=== PATIENT | male | born 2000 | race Caucasian/White ===

== ENCOUNTER 2022-06-22 07:43 | Outpatient (REF) | payer OTHER, SELFPAY ==
[2022-06-22 11:59] LABS: Estimated Average Glucose 105 mg/dL; Hemoglobin A1c % 5.3 %
[2022-06-22 12:14] LABS: Alanine Aminotransferase 35 U/L (0-40); Albumin Level 4.4 g/dL (3.5-5.0); Alkaline Phosphatase 58 U/L (39-117); Anion Gap 14 (12-20); Aspartate Amino Transferase 22 U/L (5-37); Bilirubin Total 0.4 mg/dL (0.0-1.0); Blood Urea Nitrogen 21 mg/dL (9-16); Calcium 9.6 mg/dL (8.4-10.2); Carbon Dioxide 27 mmol/L (22-29); Chloride 101 mmol/L (96-108); Cholesterol 144 mg/dL; Estimated Glomerular Filt Rate > 60; Glucose Fasting 97 mg/dL (60-99); HDL Cholesterol 38 mg/dL; LDL Cholesterol Calculated 70 mg/dl; Potassium 3.2 mmol/L (3.3-5.1); Sodium 139 mmol/L (135-145); Total Protein 7.7 g/dL (6.5-8.0); Triglycerides 180 mg/dL
[2022-06-22 12:23] LABS: TSH reflex Free T4 3.66 uIU/mL (0.32-4.0)
[2022-06-22 12:30] LABS: HBS Num1 1.96 mIU/mL (0-7.99); HBc Num1 0.12 S/CO (0.00-0.79); HBsAGNum1 0.16 S/CO (0.00-0.99); HIV AB/AG Nonreactive (Nonreactive); HIV Num 1 0.06 S/CO (0.00-0.99); Hepatitis B Core Antibody Nonreactive (Nonreactive); Hepatitis B Surface Antigen Negative (Negative); ~HepC Num1 0.06 S/CO (0.00-0.79); ~Hepatitis B Surface Antibody NONREACTIVE (Nonreactive); ~Hepatitis C Antibody Nonreactive (Nonreactive)
[2022-06-22 13:06] LABS: Creatinine Urine 20.06 mg/dL; Microalbumin Urine < 5.0 mg/L
[2022-06-23 05:16] LABS: Syphilis Screen Nonreactive (Nonreactive)
== END 2022-06-22 07:44 | disposition home or self-care (01) ==
LOC: HO.WFDLDS 07:43
PROVIDERS: Visit Provider Family Medicine
DX: Z00.00 Encounter for general adult medical examination without abnormal findings (principal); Z11.4 Encounter for screening for human immunodeficiency virus [HIV]; Z11.3 Encounter for screening for infections with a predominantly sexual mode of transmission; Z13.1 Encounter for screening for diabetes mellitus; I10 Essential (primary) hypertension; E66.01 Morbid (severe) obesity due to excess calories; Z68.42 Body mass index [BMI] 45.0-49.9, adult
CPT/HCPCS: 36415; 80053; 80061; 82043; 83036; 84443; 86704; 86706; 86780; 86803; 87340; 87389

== ENCOUNTER 2022-09-27 07:16 | Outpatient (REF) | payer OTHER, SELFPAY ==
[2022-09-27 11:05] LABS: Anion Gap 12 (12-20); Blood Urea Nitrogen 13 mg/dL (9-16); Calcium 9.8 mg/dL (8.4-10.2); Carbon Dioxide 28 mmol/L (22-29); Chloride 101 mmol/L (96-108); Estimated Glomerular Filt Rate > 60; Glucose Random 94 mg/dL (60-115); Potassium 3.6 mmol/L (3.3-5.1); Sodium 137 mmol/L (135-145)
[2022-09-27 11:52] LABS: Creatinine Urine 192.58 mg/dL; Microalbum/Creatinine Ratio Ur 10.3 ug/mg cr
== END 2022-09-27 07:17 | disposition home or self-care (01) ==
LOC: HO.WFDLDS 07:16
PROVIDERS: Visit Provider Family Medicine
DX: Z00.00 Encounter for general adult medical examination without abnormal findings (principal); I10 Essential (primary) hypertension
CPT/HCPCS: 36415; 80048; 82043

== ENCOUNTER 2023-04-12 15:38 | Outpatient (AMB) | payer OTHER, SELFPAY ==
--- NOTE | 2023-04-12 15:40 | A.OFFPC_ITS ---
Vital Signs 04/12/23 15:41 Height 6 ft 3 in Weight 400 lb 6 oz BMI 50.0 BP 126/76 Blood Pressure Location Lt brachial Position Sitting Pulse 82 Pulse Source Pulse Oximeter Pulse Oximetry (%) 97 Oxygen Delivery Method Room Air Intake Visit Reasons: f/u hypertension Intake Note: Patient is here to follow up on hypertension today, he now has new anti anxiety med. Allergies sulfamethoxazole [From Bactrim] Allergy (Mild, Verified 04/12/23 15:44) Vomiting trimethoprim [From Bactrim] Allergy (Mild, Verified 04/12/23 15:44) Vomiting Tobacco use date assessed: 04/12/23 Dental Screening Dental Screen Date: 04/12/23 Did you have a dental visit in the last 12 months?: No Did you have a dental problem in the last 6 months where you did not have access to dental care?: No Was dental information given to patient?: No HPI f/u hypertension HPI Details 22 y/o male presents to f/u hypertension. Pt was low so added lisinopril to improve blood pressure and increase potassium. Blood pressure today is 126/76. He is on lisinopril 20mg and amlodipine 2.5mg [facility]. They report he has been watching the salt and sodium in his diet. They state he does have sleep apnea. He does have a CPAP machine but has not been using it lately. [facility] Family History Maternal Grandmother Diabetes Mother History of thyroid disorder Social History Housing: House Patient Tobacco Use Status: Never used Tobacco e-Cigarette/Vaping Use: Never Used Second Hand Smoke Exposure: No service: No Current occupational status: unemployed Current occupational exposures/hazards: No Cognitive needs: No Hearing needs: No Vision needs: No Questionnaire PHQ-9 Over the last 2 weeks, how often have you been bothered by any of the following problems? 1. Little interest or pleasure in doing things: several days 2. Feeling down, depressed, or hopeless: several days 3. Trouble falling or staying asleep, or sleeping too much: not at all 4. Feeling tired or having little energy: nearly every day 5. Poor appetite or overeating: several days 6. Feeling bad about yourself - or that you are a failure or have let yourself or your family down: not at all 7. Trouble concentrating on things, such as reading the newspaper or watching television: not at all 8. Moving or speaking so slowly that other people could have noticed. Or the opposite - being so fidgety or restless that you have been moving around a lot more than usual: not at all 9. Thoughts that you would be better off or of hurting yourself in some way: not at all Total score: 6 Source: Developed by Drs. Jose Carbajal, Clara Rascon, Del Schmid and colleagues, with an educational richy from [employer]. Thrive Questionnaire Date Thrive assessed: 09/27/22 GRAY-7 AMB Questionnaire GRAY-7 Date GRAY - 7 assessed: 09/27/22 Feeling nervous, anxious, or on edge: 1 = Several days Not being able to stop or control worryin = Several days Worrying too much about different things: 3 = Nearly every day Trouble relaxin = Several days Being so restless that it is hard to sit still: 0 = Not at all Becoming easily annoyed or irritable: 0 = Not at all Feeling afraid as if something awful might happen: 1 = Several days Total GRAY-7 score (0-4 normal; 5-9 mild; 10-14 moderate; 15-21 severe): 7 Source: Developed by Drs. Jose Carbajal, Clara Rascon, Del Schmid and colleagues, with an educational richy from [employer]. Physical exam (Primary Care) Vital Signs: Last Vital Signs Pulse 82 04/12/23 15:41 BP 126/76 04/12/23 15:41 Pulse Ox 97 04/12/23 15:41 Oxygen Delivery Method Room Air 04/12/23 15:41 BMI result Body Mass Index 50.0 Tobacco/Smoking Status: Tobacco use Status Tobacco use date assessed 04/12/23 04/12/23 15:53 Patient Tobacco Use Status Never used Tobacco 04/12/23 15:53 e-Cigarette/Vaping Use Never Used 04/12/23 15:53 PHQ-9: PHQ-9 Score PHQ-9: Total score 6 04/12/23 15:56 Thrive Assessment: Date of Thrive Assessment Date Thrive assessed 09/27/22 04/12/23 15:53 Const Nutritional Appearance: obese morbidly obese Assessment and Plan Assessment & Plan (1) Hypertension: Code(s): I10 - Essential (primary) hypertension Plan: Blood pressure is controlled. Goal is less than 140/90 Continue current medication regimen Watch salt/sodium in diet Work at weight loss Also has sleep apnea which can affect his blood pressure and advised trying to use CPAP machine; patient has not been using it lately (2) Sleep apnea: Code(s): G47.30 - Sleep apnea, unspecified Plan: Patient is not using his CPAP machine as he has difficulty with this. Advised she try using it during the day to get used to it better and allow himself to fall asleep with it if he is able. Advised him to follow-up with sleep medicine (3) Morbid obesity with BMI of 45.0-49.9, adult: Code(s): E66.01 - Morbid (severe) obesity due to excess calories; Z68.42 - Body mass index [BMI] 45.0-49.9, adult Plan: Has lost about 10 lb Encouraged weight loss Coding Level of Care Code Est Pt Level 4 (35788) Diagnoses Hypertension I10 Sleep apnea G47.30 Morbid obesity with BMI of 45.0-49.9, adult E66.01; Z68.42
[2023-04-12 15:41] VITALS: BP 126/76; PULSE 82; O2SAT 97; BMI 50.0
== END 2023-04-12 16:14 | disposition home or self-care (01) ==
PROVIDERS: PCP Family Medicine; Visit Provider Family Medicine
DX: I10 Essential (primary) hypertension (principal); G47.30 Sleep apnea, unspecified; E66.01 Morbid (severe) obesity due to excess calories; Z68.42 Body mass index [BMI] 45.0-49.9, adult
CPT/HCPCS: 99214

== ENCOUNTER 2023-08-24 10:44 | Outpatient (AMB) | payer OTHER, SELFPAY ==
[2023-08-24 10:47] VITALS: BP 132/82; PULSE 80; O2SAT 98; BMI 52.7
--- NOTE | 2023-08-24 10:47 | A.OFFPC_ITS ---
Vital Signs 08/24/23 10:47 Height 6 ft 3 in Weight 421 lb 6 oz BMI 52.7 BP 132/82 Blood Pressure Location Lt brachial Position Sitting Pulse 80 Pulse Source Pulse Oximeter Pulse Oximetry (%) 98 Oxygen Delivery Method Room Air Intake Visit Reasons: f/u hypertension Intake Note: Patient is here for follow up on hypertension today. Allergies sulfamethoxazole [From Bactrim] Allergy (Mild, Verified 08/24/23 10:50) Vomiting trimethoprim [From Bactrim] Allergy (Mild, Verified 08/24/23 10:50) Vomiting Tobacco use date assessed: 08/24/23 HPI f/u hypertension HPI Details 23 y/o male presents to f/u hypertension . Blood pressure today 132/82. He is on lisinopril 20mg, amlodipine 2.5mg daily. Also on chlorthalidone 25mg daily. Hx of sleep apnea. He states he has not been using his CPAP. He does not have a sleep medicine specialist or pulmnologist. Had gained about 21 lbs from last office visit 04/12/23. He notes he has not been exercising much. [facility] Family History Maternal Grandmother Diabetes Mother History of thyroid disorder Social History Housing: House Patient Tobacco Use Status: Never used Tobacco e-Cigarette/Vaping Use: Never Used Second Hand Smoke Exposure: No service: No Current occupational status: unemployed Current occupational exposures/hazards: No Cognitive needs: No Hearing needs: No Vision needs: No Questionnaire Thrive Questionnaire Date Thrive assessed: 09/27/22 GRAY-7 AMB Questionnaire GRAY-7 Date GRAY - 7 assessed: 09/27/22 Source: Developed by Drs. Jose Carbajal, Clara Rascon, Del Schmid and colleagues, with an educational richy from [employer]. Review of Systems Const Denies chills, Denies fatigue, Denies fever(s), Denies headache(s) and Denies weakness ENT Denies dizziness and Denies headache(s) Card Denies chest pain, Denies lightheadedness, Denies dyspnea and Denies other (Palpitations) Resp Denies cough, Denies dyspnea, Denies wheezing and Denies other ( shortness of breath) Musc Denies numbness and Denies tingling Neuro Denies dizziness, Denies headache(s), Denies numbness, Denies tingling, Denies paresthesias and Denies weakness Psych Denies anxiety and Denies depression Endo Denies fatigue Aller/Immun Denies wheezing Physical exam (Primary Care) Vital Signs: Last Vital Signs Pulse 80 08/24/23 10:47 BP 132/82 08/24/23 10:47 Pulse Ox 98 08/24/23 10:47 Oxygen Delivery Method Room Air 08/24/23 10:47 BMI result Body Mass Index 52.7 Tobacco/Smoking Status: Tobacco use Status Tobacco use date assessed 08/24/23 08/24/23 10:51 Patient Tobacco Use Status Never used Tobacco 08/24/23 10:51 e-Cigarette/Vaping Use Never Used 08/24/23 10:51 Thrive Assessment: Date of Thrive Assessment Date Thrive assessed 09/27/22 08/24/23 10:51 Const General: no acute distress and well developed Nutritional Appearance: obese morbidly obese Orientation/consciousness: patient oriented x3 HENMT Head: Yes normocephalic and Yes atraumatic Eyes General: appearance normal, both eyes and all related structures Pupils: Equal, round and reactive pupils present EOM: EOMs intact bilaterally Resp Effort & Inspection: normal respiratory effort Auscultation: clear to auscultation bilaterally Cardio Rate: regular rate Rhythm: regular rhythm Heart sounds: S1 normal heart sound present, S2 normal heart sound present, no gallops, no murmurs and no rubs Neuro General: patient oriented x3 and gait normal Cranial nerves: Yes Equal, round and reactive pupils present Psych Affect: normal affect Assessment and Plan Assessment & Plan (1) Hypertension: Code(s): I10 - Essential (primary) hypertension Plan: Blood?pressure?has?increase?though?still?less?than?140/90?which?is?his?goal Continue?current?medications Encouraged?weight?loss?and?exercise Encouraged?salt/sodium?avoid (2) Morbid obesity: Code(s): E66.01 - Morbid (severe) obesity due to excess calories Plan: Morbid?obesity?with?BMI?greater?than?50 Encouraged?diet?and?increased?activity?+exercise Patient?would?like?to?try?Ozempic - will?trial?this I?think?he?would?also?benefit?from?the?weight?management?program?so?I?batres ve?made?a?referral (3) Sleep apnea: Code(s): G47.30 - Sleep apnea, unspecified Plan: Patient?is?not?using?his?CPAP?and?it?is?unclear?if?he?still?has?this. Will?refer?him?to?Sleep?Medicine Orders: Referrals Medical Weight Management Referral E66.01 - Morbid (severe) obesity due to excess calories, G47.30 - Sleep apnea, unspecified, I10 - Essential (primary) hypertension, Z68.43 - Body mass index [BMI] 50.0-59.9, adult Sleep Medicine Referral G47.30 - Sleep apnea, unspecified Medications: New semaglutide (Ozempic) 0.5 mg (0.736 mL) subcut QWEEK 3 mL 2RF 28 days E66.01 - Morbid (severe) obesity due to excess calories, Z68.43 - Body mass index [BMI] 50.0-59.9, adult Coding Level of Care Code Est Pt Level 4 (16854) Diagnoses Hypertension I10 Morbid obesity E66.01 Sleep apnea G47.30
== END 2023-08-24 11:21 | disposition home or self-care (01) ==
PROVIDERS: PCP Family Medicine; Visit Provider Family Medicine
DX: I10 Essential (primary) hypertension (principal); E66.01 Morbid (severe) obesity due to excess calories; Z68.43 Body mass index [BMI] 50.0-59.9, adult; G47.30 Sleep apnea, unspecified
CPT/HCPCS: 99214

== ENCOUNTER 2024-01-03 13:33 | Outpatient (AMB) | payer OTHER, SELFPAY ==
--- NOTE | 2024-01-03 13:20 | A.OFFPC_ITS ---
Vital Signs 01/03/24 13:52 Height 6 ft 3 in Weight 423 lb BMI 52.9 BP 132/82 Blood Pressure Location Lt brachial Position Sitting Pulse 95 Pulse Source Pulse Oximeter Pulse Oximetry (%) 98 Oxygen Delivery Method Room Air Intake Visit Reasons: f/u HTN and obesity Intake Note: Patient is here to follow up on hypertension and obesity today, he lost his paperwork for weight management, and did not end up going. Allergies sulfamethoxazole [From Bactrim] Allergy (Mild, Verified 01/03/24 13:46) Vomiting trimethoprim [From Bactrim] Allergy (Mild, Verified 01/03/24 13:46) Vomiting Medication List - Last Reconciled 01/03/24 by Matthew Thao MD amlodipine 2.5 mg PO DAILY 30 days aripiprazole (Abilify) 2 mg PO BEDTIME chlorthalidone 25 mg PO DAILY 30 days clotrimazole 1% 1 spray topical BID 14 days escitalopram oxalate 30 mg (1.5 x 20 mg) PO DAILY 30 days lisinopril 20 mg PO DAILY 90 days semaglutide (weight loss) (Wegovy) 0.25 mg (0.5 mL) subcut QWEEK 28 days Tobacco use date assessed: 01/03/24 Dental Screening Dental Screen Date: 01/03/24 Did you have a dental visit in the last 12 months?: Yes Did you have a dental problem in the last 6 months where you did not have access to dental care?: No Was dental information given to patient?: Patient has dentist HPI f/u HTN and obesity HPI Details 23 y/o male presents to f/u hypertension and morbid obesity. Trialing ozempic for weight and had referred him to the weight management program. Had also referred him to sleep medicine as he did not seem to have his CPAP machine anymore. Blood pressure today 132/82. He is on amlodipine 2.5mg, lisinopril 20mg daily. Weight management had tried to reach pt but had been unable to get a hold of him. PFSH Family History Maternal Grandmother Diabetes Mother History of thyroid disorder Social History Housing: House Patient Tobacco Use Status: Never used Tobacco e-Cigarette/Vaping Use: Never Used Second Hand Smoke Exposure: No service: No Current occupational status: unemployed Current occupational exposures/hazards: No Cognitive needs: No Hearing needs: No Vision needs: No Questionnaire PHQ-9 Over the last 2 weeks, how often have you been bothered by any of the following problems? 1. Little interest or pleasure in doing things: not at all 2. Feeling down, depressed, or hopeless: not at all 3. Trouble falling or staying asleep, or sleeping too much: not at all 4. Feeling tired or having little energy: not at all 5. Poor appetite or overeating: not at all 6. Feeling bad about yourself - or that you are a failure or have let yourself or your family down: not at all 7. Trouble concentrating on things, such as reading the newspaper or watching television: not at all 8. Moving or speaking so slowly that other people could have noticed. Or the opposite - being so fidgety or restless that you have been moving around a lot more than usual: not at all 9. Thoughts that you would be better off or of hurting yourself in some way: not at all Total score: 0 Depression Screening Interpretation: Negative Depression Screening Done: Yes 71977 - PHQ-9 Billing: Yes Source: Developed by Drs. Jose Carbajal, Clara Rascon, Del Schmid and colleagues, with an educational richy from [employer]. Thrive Questionnaire Date Thrive assessed: 01/03/24 I am a: Patient What is your living situation today?: I have a steady place to live Within the past 12 months, did the food you bought not last and you didn't have the money to get more?: Never true Within the past 12 months, did you worry whether your food would run out before you got money to buy more?: Never true Do you have trouble paying for medicines?: No Do you have trouble getting transportation to medical appointments?: No Do you have trouble paying your heating and electricity bill?: No Do you have trouble taking care of your child, family member or friend?: No Do you have trouble with day-to-day activities such as bathing, preparing meals, shopping, managing finances, etc.?: No Are you currently unemployed and looking for a job?: Yes Are you interested in more education?: Yes THRIVE Score: 0 AUDIT C Alcohol Use Questionnaire (AUDIT-C) 1. How often do you have a drink containing alcohol?: Monthly or less 2. How many drinks containing alcohol do you have on a typical day when you are drinking?: 1 or 2 3. How often do you have six or more drinks on one occasion?: Less than monthly Total Score: 2 GRAY-7 AMB Questionnaire GRAY-7 Date GRAY - 7 assessed: 01/03/24 Feeling nervous, anxious, or on edge: 0 = Not at all Not being able to stop or control worryin = Not at all Worrying too much about different things: 1 = Several days Trouble relaxin = Not at all Being so restless that it is hard to sit still: 0 = Not at all Becoming easily annoyed or irritable: 0 = Not at all Feeling afraid as if something awful might happen: 1 = Several days Total GRAY-7 score (0-4 normal; 5-9 mild; 10-14 moderate; 15-21 severe): 2 Source: Developed by Drs. Jose Carbajal, Clara Rascon, Del Schmid and colleagues, with an educational richy from [employer]. GRAY-7 Assessment Billing GRAY-7 Assessment Tool: GRAY-7 Assessment [id number] Review of Systems Const Denies chills, Denies fatigue, Denies fever(s), Denies headache(s) and Denies weakness ENT Denies dizziness and Denies headache(s) Card Denies dyspnea Resp Denies cough, Denies dyspnea, Denies wheezing and Denies other (shortness of breath) Musc Denies numbness and Denies tingling Neuro Denies dizziness, Denies headache(s), Denies numbness, Denies tingling and Denies weakness Psych Denies anxiety and Denies depression Endo Denies fatigue Aller/Immun Denies wheezing Physical exam (Primary Care) Vital Signs: Last Vital Signs Pulse 95 01/03/24 13:52 BP 132/82 01/03/24 13:52 Pulse Ox 98 01/03/24 13:52 Oxygen Delivery Method Room Air 01/03/24 13:52 BMI result Body Mass Index 52.9 Tobacco/Smoking Status: Tobacco use Status Tobacco use date assessed 01/03/24 01/03/24 13:49 Patient Tobacco Use Status Never used Tobacco 01/03/24 13:21 e-Cigarette/Vaping Use Never Used 01/03/24 13:21 PHQ-9: PHQ-9 Score PHQ-9: Total score 0 01/03/24 14:05 Depression Screening Interpretation: Negative Thrive Assessment: Date of Thrive Assessment Date Thrive assessed 01/03/24 01/03/24 13:56 Const General: well developed; No acute distress Nutritional Appearance: obese morbidly obese Orientation/consciousness: patient oriented x3 HENMT Head: Yes normocephalic and Yes atraumatic Eyes General: appearance normal, both eyes and all related structures Pupils: Equal, round and reactive pupils present EOM: EOMs intact bilaterally Resp Effort & Inspection: normal respiratory effort Auscultation: clear to auscultation bilaterally Cardio Rate: regular rate Rhythm: regular rhythm Heart sounds: S1 normal heart sound present, S2 normal heart sound present, no gallops, no murmurs and no rubs Neuro General: patient oriented x3 and gait normal Cranial nerves: Yes Equal, round and reactive pupils present Psych Affect: normal affect Assessment and Plan Assessment & Plan (1) Hypertension: Code(s): I10 - Essential (primary) hypertension Plan: Blood?pressure?is?controlled.??Goal?is?less?than?140/90 Continue?current?medication?regimen?of?amlodipine,?chlorthalidone?and?lisinopril Encouraged?salt/sodium?avoidance?and?weight?loss. Encouraged?exercise - he?is?starting?softball?this?month (2) Morbid obesity: Code(s): E66.01 - Morbid (severe) obesity due to excess calories Plan: Had?referred?him?to?weight?management?and?they?tried?to?contact?him?but?did?not? reach?him Gave?him?the?number?for?weight?management?and?he?will?call?for?an?appointment (3) Sleep apnea: Code(s): G47.30 - Sleep apnea, unspecified Plan: Had?referred?him?to?Sleep?Medicine?but?they?were?unable?to?reach?him. Gave?patient?the?phone?number?for?sleep?medicine?and?he?will?call?for?an?appoint ment Coding Level of Care Code Est Pt Level 3 (41149) Diagnoses Hypertension I10 Morbid obesity E66.01 Sleep apnea G47.30 Additional Codes GRAY-7 Assessment Billing - GRAY-7 Assessment Tool: GRAY-7 Assessment [id number] ([id number])
[2024-01-03 13:52] VITALS: BP 132/82; PULSE 95; O2SAT 98; BMI 52.9
== END 2024-01-03 14:16 | disposition home or self-care (01) ==
PROVIDERS: PCP Family Medicine; Visit Provider Family Medicine
DX: I10 Essential (primary) hypertension (principal); E66.01 Morbid (severe) obesity due to excess calories; Z68.43 Body mass index [BMI] 50.0-59.9, adult; G47.30 Sleep apnea, unspecified
CPT/HCPCS: 99213

== ENCOUNTER 2024-10-08 09:03 | Outpatient (AMB) | payer OTHER, SELFPAY ==
--- NOTE | 2024-10-08 09:06 | A.OFFPC_ITS ---
Vital Signs 10/08/24 09:10 Height 6 ft 3 in Weight 423 lb 6 oz BMI 52.9 BP 130/72 Blood Pressure Location Lt brachial Position Sitting Respiration 16 Pulse 90 Pulse Source Pulse Oximeter Temp 97.8 F Temp Source Oral Pulse Oximetry (%) 96 Oxygen Delivery Method Room Air Intake Visit Reasons: PE Intake Note: patient here for CPE Auto Damage Trainee Required: No Allergies sulfamethoxazole [From Bactrim] Allergy (Mild, Verified 10/08/24 09:09) Vomiting trimethoprim [From Bactrim] Allergy (Mild, Verified 10/08/24 09:09) Vomiting Medication List - Last Reconciled 10/08/24 by Matthew Thao MD amlodipine 2.5 mg PO DAILY 30 days aripiprazole (Abilify) 2 mg PO BEDTIME chlorthalidone 25 mg PO DAILY 30 days clotrimazole 1% 1 spray topical BID 14 days escitalopram oxalate 30 mg (1.5 x 20 mg) PO DAILY 30 days lisinopril 20 mg PO DAILY 90 days Tobacco use date assessed: 10/08/24 Dental Screening Dental Screen Date: 10/08/24 Did you have a dental visit in the last 12 months?: Yes Did you have a dental problem in the last 6 months where you did not have access to dental care?: No Was dental information given to patient?: Patient has dentist HPI PE HPI Details 24 y/o male presents for a CPE with f/u labs and health maintenance. No recent labs to review. BP today 130/72, 90p. He is on amlodipine 2.5mg and lisinopril 20mg daily. [facility] Family History Maternal Grandmother Diabetes Mother History of thyroid disorder Social History Housing: House Patient Tobacco Use Status: Never used Tobacco e-Cigarette/Vaping Use: Never Used Second Hand Smoke Exposure: No service: No Current occupational status: unemployed Current occupational exposures/hazards: No Cognitive needs: No Hearing needs: No Vision needs: No Questionnaire PHQ-9 Over the last 2 weeks, how often have you been bothered by any of the following problems? 1. Little interest or pleasure in doing things: not at all 2. Feeling down, depressed, or hopeless: several days 3. Trouble falling or staying asleep, or sleeping too much: not at all 4. Feeling tired or having little energy: several days 5. Poor appetite or overeating: several days 6. Feeling bad about yourself - or that you are a failure or have let yourself or your family down: not at all 7. Trouble concentrating on things, such as reading the newspaper or watching television: several days 8. Moving or speaking so slowly that other people could have noticed. Or the opposite - being so fidgety or restless that you have been moving around a lot more than usual: not at all 9. Thoughts that you would be better off or of hurting yourself in some way: not at all Total score: 4 Source: Developed by Drs. Jose Carbajal, Clara Rascon, Del Schmid and colleagues, with an educational richy from [employer]. Thrive Questionnaire Date Thrive assessed: 10/08/24 I am a: Patient What is your living situation today?: I have a steady place to live Within the past 12 months, did the food you bought not last and you didn't have the money to get more?: Never true Within the past 12 months, did you worry whether your food would run out before you got money to buy more?: Never true Do you have trouble paying for medicines?: No Do you have trouble getting transportation to medical appointments?: No Do you have trouble paying your heating and electricity bill?: No Do you have trouble taking care of your child, family member or friend?: No Do you have trouble with day-to-day activities such as bathing, preparing meals, shopping, managing finances, etc.?: No Are you currently unemployed and looking for a job?: Yes Are you interested in more education?: Yes Please select the resources that you would like help with: None Currently or been in a relationship where the following occur: No concerns reported THRIVE Score: 0 AUDIT C Alcohol Use Questionnaire (AUDIT-C) 1. How often do you have a drink containing alcohol?: Monthly or less 2. How many drinks containing alcohol do you have on a typical day when you are drinking?: 1 or 2 3. How often do you have six or more drinks on one occasion?: Never Total Score: 1 GRAY-7 AMB Questionnaire GRAY-7 Date GRAY - 7 assessed: 10/08/24 Feeling nervous, anxious, or on edge: 1 = Several days Not being able to stop or control worryin = Not at all Worrying too much about different things: 1 = Several days Trouble relaxin = Not at all Being so restless that it is hard to sit still: 0 = Not at all Becoming easily annoyed or irritable: 1 = Several days Feeling afraid as if something awful might happen: 0 = Not at all Total GRAY-7 score (0-4 normal; 5-9 mild; 10-14 moderate; 15-21 severe): 3 Source: Developed by Drs. Jose Carbajal, Clara Rascon, Del Schmid and colleagues, with an educational richy from [employer]. GRAY-7 Assessment Billing GRAY-7 Assessment Tool: GRAY-7 Assessment 31810 Review of Systems Const Denies chills, Denies fatigue, Denies fever(s), Denies headache(s) and Denies weakness Eyes Denies change in vision ENT Denies dizziness, Denies headache(s), Denies hearing loss, Denies nasal congestion, Denies sinus pain, Denies sinus pressure and Denies sore throat Card Denies chest pain, Denies lightheadedness, Denies dyspnea and Denies other ( palpitations) Resp Denies cough, Denies dyspnea and Denies wheezing GI Denies abdominal pain, Denies melena, Denies hematochezia, Denies change in bow el habits, Denies dyspepsia and Denies nausea Denies hematuria and Denies dysuria Musc Denies abnormal gait, Denies myalgias, Denies arthralgias, Denies numbness and Denies tingling Skin/Breast Denies rash, Denies unusual bruising and Denies wounds Neuro Denies abnormal gait, Denies dizziness, Denies headache(s), Denies memory loss, Denies numbness, Denies Sensory deficit (Neuro), Denies tingling and Denies weakness Psych Denies anxiety, Denies depression and Denies memory loss Endo Denies cold intolerance, Denies fatigue, Denies heat intolerance, Denies polydipsia and Denies polyuria Kade/Lymph Denies easy bleeding and Denies easy bruising Aller/Immun Denies wheezing Physical exam (Primary Care) Vital Signs: Last Vital Signs Temp 97.8 F 10/08/24 09:10 Pulse 90 10/08/24 09:10 Resp 16 10/08/24 09:10 BP 130/72 10/08/24 09:10 Pulse Ox 96 10/08/24 09:10 Oxygen Delivery Method Room Air 10/08/24 09:10 BMI result Body Mass Index 52.9 Tobacco/Smoking Status: Tobacco use Status Tobacco use date assessed 10/08/24 10/08/24 09:10 Patient Tobacco Use Status Never used Tobacco 10/08/24 09:08 e-Cigarette/Vaping Use Never Used 10/08/24 09:08 PHQ-9: PHQ-9 Score PHQ-9: Total score 4 10/08/24 09:08 Thrive Assessment: Date of Thrive Assessment Date Thrive assessed 10/08/24 10/08/24 09:08 Currently or been in a relationship where the following occur: No concerns reported Const General: no acute distress, well developed, alert and awake Nutritional Appearance: well nourished and obese morbidly obese Orientation/consciousness: patient oriented x3 HENMT Head: Yes normocephalic and Yes atraumatic Ears: hearing grossly normal bilaterally and TM's normal bilaterally General nose exam: Normal external nose present and Normal nares present Mouth: Normal oral and palatal mucosa present and moist mucous membranes Teeth and gingiva: dentition normal Throat: Yes posterior oropharynx normal Eyes General: appearance normal, both eyes and all related structures Pupils: Equal, round and reactive pupils present and Pupil accommodation reflex normal EOM: EOMs intact bilaterally Neck Neck: Yes normal visual inspection, Yes no lymphadenopathy and Yes trachea midline Thyroid: Thyroid normal Carotids: no bruits Lymphatic: no lymphadenopathy noted Chest Chest palpation & inspection: normal inspection of the chest Resp Effort & Inspection: normal respiratory effort Auscultation: clear to auscultation bilaterally Cardio Rate: regular rate Rhythm: regular rhythm Heart sounds: S1 normal heart sound present, S2 normal heart sound present, no gallops, no murmurs and no rubs Bruits: no abdominal aortic bruits and no carotid bruits GI Palpation (GI): No Abdominal aortic bruit present, Soft to palpation, nontender, No hepatosplenomegaly present and No Rebound tenderness present Auscultation: normal bowel sounds General: Yes no CVA tenderness Back/Spine/Pelvis Back: no CVA tenderness Cervical Spine: cervical ROM normal and No Cervical spine tenderness Thoracic/Lumbar Spine: thoraco-lumbar ROM normal, No pain with thoraco-lumbar ROM, No thoracic spinal tenderness and No lumbar spinal tenderness Skin Lesions: no lesions Rashes: no rashes Trauma: no lacerations or abrasions Wounds: no wounds Nails: normal Neuro General: patient oriented x3 Cranial nerves: Yes Equal, round and reactive pupils present Cognition (Neuro): normal cognition Gait exam (Neuro): Normal gait present Motor exam (neuro): 5/5 motor strength present throughout Sensory Exam: No Sensory deficit (Neuro) Deep tendon reflexes (DTR's): Right patellar reflex intensity grade: 2+ and Left patellar reflex intensity grade: 2+ Extrem General: Yes normal to inspection and No edema Psych Appearance: grossly normal Affect: normal affect Attitude: cooperative Thought process: Normal thought process present Coding Level of Care Code Est Pt Prev Care 18-39y(74874) Diagnoses Adult general medical exam Z00.00 Anxiety F41.9 Morbid obesity with BMI of 50.0-59.9, adult E66.01; Z68.43 Hypertension I10 Additional Codes GRAY-7 Assessment Billing - GRAY-7 Assessment Tool: GRAY-7 Assessment 72450 ([id number]) Assessment & Plan Assessment & Plan (1) Adult general medical exam: Code(s): Z00.00 - Encounter for general adult medical examination without abnormal findings Category: Medical Plan: 24-year-old?male?presents?for?complete?physical?exam Encouraged?healthy?diet?with?active?lifestyle?and?plenty?of?exercise (2) Anxiety: Code(s): F41.9 - Anxiety disorder, unspecified Category: Medical Plan: Controlled?with?aripiprazole?and?escitalopram. Continue?current?medication?regimen (3) Morbid obesity with BMI of 50.0-59.9, adult: Code(s): E66.01 - Morbid (severe) obesity due to excess calories; Z68.43 - Body mass index [BMI] 50.0-59.9, adult Category: Medical Plan: Patient?now?followed?by?weight?management?team?and?they?have?started will?go?be ?in?more?recently?Zepbound which?he?is?tolerating?well. Pt may have gained more wt and more recently has lost it again Patient?and?mom?say?that?he?has?lost?about?20?lb since?starting?the?above?medic ations. Encouraged?ongoing?weight?loss Follow-up?with?weight?management?team (4) Hypertension: Code(s): I10 - Essential (primary) hypertension Category: Medical Plan: Blood?pressure?is?controlled.??Goal?is?less?than?140/90 Continue?current?medication?regimen Continue?weight?loss Medications: New tirzepatide (weight loss) (Zepbound) for 4 weeks 2.5 mg (0.5 mL) subcut QWEEK 28 days 2 mL 0RF
[2024-10-08 09:10] VITALS: BP 130/72; PULSE 90; RESP 16; TEMP 36.6; O2SAT 96; BMI 52.9
== END 2024-10-08 09:41 | disposition home or self-care (01) ==
PROVIDERS: PCP Family Medicine; Visit Provider Family Medicine
DX: Z00.00 Encounter for general adult medical examination without abnormal findings (principal); F41.9 Anxiety disorder, unspecified; E66.01 Morbid (severe) obesity due to excess calories; Z68.43 Body mass index [BMI] 50.0-59.9, adult; I10 Essential (primary) hypertension

== ENCOUNTER → 2024-10-08 09:03 | Outpatient (BNVA) | payer OTHER, SELFPAY | PROVIDERS: PCP Family Medicine; Visit Provider Family Medicine | DX: Z00.00 Encounter for general adult medical examination without abnormal findings (principal); F41.9 Anxiety disorder, unspecified; E66.01 Morbid (severe) obesity due to excess calories; Z68.43 Body mass index [BMI] 50.0-59.9, adult; I10 Essential (primary) hypertension; Z79.899 Other long term (current) drug therapy | CPT/HCPCS: 96127 ==

== ENCOUNTER 2024-10-08 09:55 | Outpatient (REF) | payer OTHER, SELFPAY ==
[2024-10-08 11:04] LABS: MANUAL DIFF FLAG NO
[2024-10-08 11:11] LABS: Basophils Absolute Auto 0.1 X10*3/uL (0.0-0.2); Basophils Percent Auto 0.8 % (0-2); Eosinophils Absolute Auto 0.1 X10*3/uL (0.0-0.4); Eosinophils Percent Auto 1.4 % (0-4); Hematocrit 42.7 % (42.0-52.0); Hemoglobin 14.8 g/dl (14.0-18.0); Imm Gran Abs Auto 0.02 X10*3/uL (0.00-0.03); Imm Gran Pct Auto 0.2 % (0.0-0.4); Lymphocytes Absolute Auto 2.4 X10*3/uL (1.2-4.9); Lymphocytes Percent Auto 29.1 % (20-40); Mean Corpuscular HGB Conc 34.7 g/dl (31.0-36.0); Mean Corpuscular Hemoglobin 29.1 pg (27.0-33.0); Mean Corpuscular Volume 84.1 fL (80.0-98.0); Monocytes Absolute Auto 0.6 X10*3/uL (0.1-1.2); Monocytes Percent Auto 7.1 % (2-11); Neutrophils Absolute Auto 5.1 x10*3/uL (2.0-8.3); Neutrophils Percent Auto 61.4 % (45-73); Platelet Count 300 X10*3/uL (160-400); Red Blood Count 5.08 X10*6/uL (4.60-5.80); Red Cell Distribution Width 13.4 % (11.0-16.0); White Blood Count 8.4 X10*3/uL (4.8-10.8)
[2024-10-08 11:15] LABS: Appearance Urine Clear; Color Urine Dark Yellow; Glucose Urine UA Negative (Negative); Leukocyte Esterase Urine Trace (Negative); Nitrite Urine Negative (Negative); PH 5.5 (5.0-9.0); Specific Gravity - Urine 1.025 (1.005-1.025); UMIC TRIGGER UA YES; Urine Blood Negative (Negative); Urine Ketones Trace mg/dL (Negative); Urine Protein Negative (Neg-Trace)
[2024-10-08 11:21] LABS: Bacteria Urine 1+ (None Seen); Hyaline Casts Urine 0-2 /LPF (0-2); RBC Urine 0-2 /HPF (0-2); WBC Urine 0-5 /HPF (0-5)
[2024-10-08 11:36] LABS: Alanine Aminotransferase 43 U/L (0-40); Albumin Level 4.3 g/dL (3.5-5.0); Alkaline Phosphatase 60 U/L (39-117); Anion Gap 10 (12-20); Aspartate Amino Transferase 23 U/L (5-37); Bilirubin Total 0.3 mg/dL (0.0-1.0); Blood Urea Nitrogen 11 mg/dL (9-16); Calcium 9.5 mg/dL (8.4-10.2); Carbon Dioxide 27 mmol/L (22-29); Chloride 107 mmol/L (96-108); Cholesterol 136 mg/dL (<200); Estimated Glomerular Filt Rate > 60; Glucose Fasting 96 mg/dL (60-99); HDL Cholesterol 36 mg/dL (>40); LDL Cholesterol Calculated 81 mg/dL (<100); Potassium 3.6 mmol/L (3.3-5.1); Sodium 140 mmol/L (135-145); Total Protein 8.2 g/dL (6.5-8.0); Triglycerides 97 mg/dL (<150)
[2024-10-08 11:52] LABS: TSH reflex Free T4 2.43 uIU/mL (0.32-4.0)
[2024-10-08 11:56] LABS: Creatinine Urine 356.63 mg/dL; Microalbum/Creatinine Ratio Ur 7.2 ug/mg cr (<30)
[2024-10-14 21:13] LABS: Testosterone, Free 34.6 pg/mL (35.0-155.0); Testosterone, Total 185 ng/dL (250-1100)
== END 2024-10-08 09:56 | disposition home or self-care (01) ==
LOC: HO.WFDLDS 09:55
PROVIDERS: Visit Provider Family Medicine
DX: Z00.00 Encounter for general adult medical examination without abnormal findings (principal); E66.01 Morbid (severe) obesity due to excess calories; Z68.43 Body mass index [BMI] 50.0-59.9, adult; I10 Essential (primary) hypertension
CPT/HCPCS: 36415; 80053; 80061; 81001; 82043; 82570; 84402; 84403; 84443; 85025

== ENCOUNTER → 2024-11-06 09:20 | Outpatient (AMB) | payer OTHER, SELFPAY ==
--- NOTE | 2024-11-06 09:17 | MHC.PC.OV ---
Intake Visit Reasons: f/u CPE-labs via telemed Intake Note: lab review Allergies sulfamethoxazole [From Bactrim] Allergy (Mild, Verified 11/06/24 09:17) Vomiting trimethoprim [From Bactrim] Allergy (Mild, Verified 11/06/24 09:17) Vomiting Medication List - Last Reconciled 11/06/24 by Matthew Thao MD amlodipine 2.5 mg PO DAILY 30 days aripiprazole (Abilify) 2 mg PO BEDTIME chlorthalidone 25 mg PO DAILY 30 days clotrimazole 1% 1 spray topical BID 14 days escitalopram oxalate 30 mg (1.5 x 20 mg) PO DAILY 30 days lisinopril 20 mg PO DAILY 90 days tirzepatide (weight loss) (Zepbound) 2.5 mg (0.5 mL) subcut QWEEK 28 days Tobacco use date assessed: 10/08/24 Dental Screening Dental Screen Date: 10/08/24 HPI f/u CPE-labs via telemed HPI Details 24 y/o male presents to f/u labs via telemedicine. Labs drawn 10/08/24. Reviewed labs with pt. Elevated ALT of 43. Triglycerides 97. TC 136. LDL 81. HDL low at 36. Total testosterone 185, Fr testosterone 34.6. PFSH Family History Maternal Grandmother Diabetes Mother History of thyroid disorder Social History Housing: House Patient Tobacco Use Status: Never used Tobacco e-Cigarette/Vaping Use: Never Used Second Hand Smoke Exposure: No service: No Current occupational status: unemployed Current occupational exposures/hazards: No Cognitive needs: No Hearing needs: No Vision needs: No Questionnaire Thrive Questionnaire Date Thrive assessed: 10/08/24 GRAY-7 AMB Questionnaire GRAY-7 Date GRAY - 7 assessed: 10/08/24 Source: Developed by Drs. Jose Carbajal, Clara Rascon, Del Schmid and colleagues, with an educational richy from [employer]. Review of Systems Const Denies chills, Denies fatigue, Denies fever(s), Denies headache(s) and Denies weakness ENT Denies dizziness and Denies headache(s) Card Denies dyspnea Resp Denies cough, Denies dyspnea, Denies wheezing and Denies other (shortness of breath) Musc Denies numbness and Denies tingling Neuro Denies dizziness, Denies headache(s), Denies numbness, Denies tingling and Denies weakness Psych Denies anxiety and Denies depression Endo Denies fatigue Aller/Immun Denies wheezing Physical exam (Primary Care) Tobacco/Smoking Status: Tobacco use Status Tobacco use date assessed 10/08/24 11/06/24 09:19 Patient Tobacco Use Status Never used Tobacco 11/06/24 09:19 e-Cigarette/Vaping Use Never Used 11/06/24 09:19 Thrive Assessment: Date of Thrive Assessment Date Thrive assessed 10/08/24 11/06/24 09:19 Telehealth Telehealth Telehealth Platform: Telephone Location of provider rendering services: practice address Location of patient: address on file Patient Identification confirmed using: Name, : Yes Telehealth method: voice only Patient verbally consented to treatment: Yes Patient verbally consented to billing insurance company: Yes Patient informed of any privacy concerns related to visit: Yes Minutes spent on Phone/Video with Pt.: 5 Coding Level of Care Code Tele Est Pt Level 2 (00621) Diagnoses Low testosterone R79.89 Low HDL (under 40) E78.6 Elevated ALT measurement R74.01 Assessment & Plan Assessment & Plan (1) Low testosterone: Code(s): R79.89 - Other specified abnormal findings of blood chemistry Category: Medical Plan: Testosterone?level?is?low I?have?ordered?repeat?testosterone?levels?and?he?will?get?these?drawn. We?discussed?that?if?they?remain?low?I?will?make?a?referral?to?endocrinology?to?discuss?hormone?replacement?therapy (2) Low HDL (under 40): Code(s): E78.6 - Lipoprotein deficiency Category: Medical Plan: Encouraged?increase?in?exercise (3) Elevated ALT measurement: Code(s): R74.01 - Elevation of levels of liver transaminase levels Category: Medical Plan: Mildly?elevated?ALT Continue?ongoing?weight?loss?and?hydrate?well Will?recheck?with?next?blood?draw Orders: Orders Comprehensive Met. Panel Today R74.01 - Elevation of levels of liver transaminase levels
--- OUTSIDE RECORDS SUMMARY | 2024-11-06 09:44 | XMS_ITS | Encounter Summary ---
Author Organization [facility] Address [address] [place] [address] Phone Care Team Providers Care Pad Machine Offbearer Name Role Phone Jose Moore MD Primary Care Provider [phone] Encounter Details Date Type Department Care Team (Late st Contact Info) Description 05/10/2017 Conversion Encounter [facility] - [address] [id number] Social History Tobacco Use Types Packs/Day Years Used Date Smoking Tobacco: Never Assessed Sex and Gender Information Value Date Recorded Sex Assigned at Not on file Legal Sex Male 6:16 PM EDT Gender Identity Male 11/16/2020 9:01 AM EST Sexual Orientation Not on file documented as of this encounter Plan of Treatment Not on file documented as of this encounter Visit Diagnoses Not on filedocumented in this encounter Care Teams Pad Machine Offbearer Relationship Specialty Start Date End Date Jose Moore MD [address] [place] [address] PCP - General 01/30/18 08/04/24 documented as of this encounter
--- OUTSIDE RECORDS SUMMARY | 2024-11-06 09:44 | XMS_ITS | Encounter Summary ---
Author Organization [facility] Address [address] [place] [id number] Phone Care Team Providers Care Dolphin Trainer Name Role Phone Jose Moore MD Primary Care Provider [phone] Reason for Visit * Reason Comments Med Refill Encounter Details Date Type Department Care Team (Late st Contact Info) Description 08/19/2020 [facility]ill [facility] [address] [address] Rupinder Virk NP Anxiety Social History Tobacco Use Types Packs/Day Years Used Date Smoking Tobacco: Never Smokeless Tobacco: Never Alcohol Use Standard Drinks/Week Comments Never 0 (1 standard drink = 0.6 oz pur e alcohol) Hunger/Food Answer Date Recorded In the last 12 months, did y ou or your family ever eat less than you felt you should because there wasn't enough money for food? No 02/12/2020 Stable Housing Answer Date Recorded Are you worried that in the next 2 months you may not have stable housing? No 02/12/2020 Transportation Concerns Answer Date Rec orded In the last 12 months, have you or your family ever had to go without healthcare because you didn't have a way to get there? No 02/12/2020 Hazards in Home Answer Date Recorded Think about the place you li ve. Do you have problems with any of the following? Pests (mice or roaches), mold, no/not working smoke detectors, water leaks, no window guards. No 2019 Financing Utilities Answer Date Recorde d In the last 12 months, has t he electric, gas, oil, or water company threatened to shut off your services in your home? No 02/12/2020 Safety at Home Answer Date Recorded Are you or your family worried about feeling saf e in your home? No 02/12/2020 Outside Support Answer Date Recorded Do you feel that you need mo re support from other people or programs to help you care for yourself or your family? No 02/12/2020 Understanding Health Concerns Answer Da te Recorded Do you need help understandi ng your or your child's healthcare needs (diagnosis, medications, plan, etc.)? No 02/12/2020 Financing Health Concerns Answer Date R ecorded In the last 12 months, was t here a time when your child needed to see a doctor or get medications or supplies but could not because of cost? No 02/12/2020 Missing School or Work Answer Date Dariel rded Did you or your child miss s chool or work because of a health problem that could have been avoided? No 02/12/2020 Sex and Gender Information Value Date Recorded Sex Assigned at Not on file Legal Sex Male 6:16 PM EDT Gender Identity Male 11/16/2020 9:01 AM EST Sexual Orientation Not on file documented as of this encounter Miscellaneous Notes * Telephone Encounter - Yuliya Mendoza MA - 08/20/2020 10:41 AM EST Call to WAQAR Kwan to please call back and schedule a med check * Telephone Encounter - Kasie Ramos MD - 08/20/2020 9:[address] Moore's note end of June needs med check for 1 months time (which is now) * Telephone Encounter - Yuliya Mendoza MA - 08/20/2020 7:58 AM EST Refill request for Fluoxetine 20mg Last [facility] was 02/12/20 Last refill 07/24/20 Please review documented in this encounter Plan of Treatment Not on file documented as of this encounter Visit Diagnoses Diagnosis Anxiety Anxiety state, unspecified documented in this encounter Care Teams Dolphin Trainer Relationship Specialty Start Date End Date Jose Moore MD [address] [place] [address] PCP - General 01/30/18 08/04/24 documented as of this encounter
--- OUTSIDE RECORDS SUMMARY | 2024-11-06 09:44 | XMS_ITS ---
Author Organization [facility] Address [address] [place] [address] Care Team Providers Care Skidder Driver Name Role Phone MACIELSHEA LOZADA Unavailable [phone] CLARA MOYER Unavailable [phone] REASON FOR VISIT PA-ZEPBOUND Encounters Encounter Location Date Provider Diagnosis [facility] [address] [place] [address] 09/30/2024 CLARA MOYER PLAN OF TREATMENT Next Appt Details Provider Name:CLARA Ch, 12/01/2024 08:45:00 AM, [address], [address], [place], [address], Progress Notes * Aquiles PAGEDOB:2000 ([age] yo M)Acc No.[id number]:09/30/2024 Patient:??Aquiles PAGE :2000?Age:24 Y?Sex:Theo sharpe Address:[address] [place] [id number] * true * Date:??
--- OUTSIDE RECORDS SUMMARY | 2024-11-06 09:45 | XMS_ITS | Clinical Summary ---
Author Organization [facility] Address [address] [place] [id number] Phone Care Team Providers Care Grinder Set Up Operator Centerless Name Role Phone Unavailable Primary Care Provider Unavailabl e Allergies Active Allergy Reactions Criticality Noted Date Comments Sulfamethoxazole-Trimethoprim Nausea And Vomiting Medications escitalopram 10 MG tablet Take 10 mg by mouth once daily. 1 Active clindamycin 1 % gelIndications:A cne, unspecified acne type APPLY TO AFFECTED AREA AT NIGHT 30 g 1 Active Active Problems Problem Noted Date Diagnosed Date Obstructive sleep apnea syndrome 01/10/2021 Overview (01/10/2021): 01/12 Sleep study. Consult for CPAP eval scheduled Essential hypertension 10/25/2020 Overview (11/22/2020): Dr Chris: Ambulatory BP monitor elevated. Echo normal. 11/19/20 Put on low salt diet. Fasting labs ordered. Referral to Weight management clinic. Follow up in 4 months,. Assessment & Plan (11/16/2020 9:19 AM EST): Follow up tomorrow with Cardiology and for sleep study in December. Anxiety 10/22/2018 Overview (10/19/2020): 10/22/18: Started fluoxetine 12/03/18: increased to 20 mg 09/10/20: increased to 30 mg 10/14 - PHP program changed from Fluoxetine to Lexapro - new outpt therapist Assessment & Plan (11/16/2020 9:19 AM EST): Glad that Aquiles has had good improvement with Lexapro and that things are going well with new therapist. Medication will be managed by Sara Villarreal APRN Ct He can follow up with me at any time. Assessment & Plan (09/10/2020 2:42 PM EST): Glad that mom has been in contact with a therapist for him and encouraged him to keep apt and give it a fair shot. Discussed options around fluoxetine. Through shared decision making we agreed to increase dose to 30 mg. Recheck in 3-4 weeks. Assessment & Plan (02/12/2020 10:21 PM EDT): Continues to do well with fluoxetine given Pandemic situation. Okay to refill x 6 months. Assessment & Plan (11/11/2019 9:27 PM EST): Doing well. Paper RX given for Fluoxetine 20 mg 1 PO q day no refills (can add refills the next time we do electronic refill). Told him to make sure to request refills. He will be do for a wcc after Apirl. Assessment & Plan (05/20/2019 11:11 AM EDT): Reports that things are going well with Fluoxetine Assessment & Plan (01/23/2019 9:58 AM EDT): Anxiety has improved greatly with GAD7 down to 5 today. Will continue current dose. Return in 3 months for recheck sooner if needed. Assessment & Plan (12/03/2018 11:16 PM EDT): Aquiles is doing well but still with frequent anxiety symptoms. Strongly encouraged him to pursue counseling. He will remind mom. Discussed options with meds. Will increase him to 20 mg and have him return in one month for a recheck. Again reviewed black box warning info. Assessment & Plan (10/22/2018 11:40 PM EST): History and GRAY screen is concerning for anxiety. Discussed anxiety with him and mother. Discussed treatment options, including role of therapy and medication. We also reviewed that if first therapist is not a good fit, that does not mean that all therapy is bad, just might need to try someone else. Mom plans to call Jerel Rankin who sees sibling. Discussed SSRI. Reviewed potential side effects and FDA black box warning with both Aquiles and mom. Mom will watch him closely. Will see him back in 2 weeks for a recheck. BMI (body mass index), pediatric, > 99% for age 0312/21/2016 Assessment & Plan (02/12/2020 10:24 PM EDT): Discussed weight/nutrition/exercise with Aquiles. He agrees to go for screening labs. Assessment & Plan (05/20/2019 11:10 AM EDT): Discussed weight with Aquiles. It is possible that weight gain is contributing to some of his discomfort. Discussed simple things he can do to increase activity level. Obsessive-compulsive disorder 12/21/2016 Overview (10/19/2020): Started on Lexapro.10/14 by PHP (stopped fluoxetine) Assessment & Plan (01/23/2019 9:59 AM EDT): Some minor OCD behaviors. Told him that if these are increasing or getting in the way of his life to let me know. Acne vulgaris 12/21/2016 Resolved Problems Problem Noted Date Diagnosed Date Resolved Date Achilles tendinitis of both lower extremities 05/20/20 19 02/12/2020 Overview (05/20/2019): 8.19 Assessment & Plan (05/20/2019 11:12 AM EDT): Most c/w achillis tendinitis. Will have him try stretching. Handouts given. Reviewed supportive care. Reviewed signs and symptoms of worsening. Reviewed when to call or return. Developmental expressive language disorder 12/21/2016 02/12/2020 Overview (12/22/2018): Learning Disability, possible Auditory Processing Delay vs expresive speech delay IEP for OT, speech; In ESL class @ [facility] [facility] Chronic tension-type headach e, not intractable 08/30/2016 02/12/2020 Immunizations Immunization Administration Dates Next Due DTaP 08/23/2004, 2,2000,10/15,2000 DTaP 5 08/23/2004, 2,2000,10/15,2000 HPV Vaccine 9 Valent 12/20/2016 HPV, Quadrivalent 12/17/2014 Hep A, ped/adol 12/21/2017,12/20/2016 Hep B, ped/adol 03/15/2001, 1,2000,07/23,2000,2000 Hib (PRP-T) 09/20/2001, 1,2000,12/13,2000,2000,2000 ,2000 IPV 08/23/2004, 4,02/20/2002,02/20,2000,2000,2000 ,2000 Influenza, injectable, quadrivalent 07/06/2012 Influenza, injectable, quadr ivalent, preservative free 07/06/2020,06/29/2018,08/13/2017,08/30,06/18/2015,07/26/2013 Influenza, injectable, trivalent 06/29/2004,01/2003 MMR 08/23/2004, 4,09/20/2001,09/20 Meningococcal Conj (Menactra) MCV4P 12/20/2016,1 Pneumococcal Conjugate 06/17/2001,2000,2000,12/13,2000,2000,2000 ,2000 Tdap 07/12/2012 Varicella 02/08/2007,06/17/2001,06/17/2001 Family History Medical History Relation Name Comments ADD / ADHD Brother 2 Alonso Anxiety disorder Brother 2 Alonso Autism Brother 2 Alonso No Known Problems Father Hypertension Maternal Grandfather Dementia Maternal Grandmother Diabetes Maternal Grandmother Heart attack Maternal Grandmother Macular degeneration Maternal Grandmother Ton's thyroiditis Mother Hypertension Mother No Known Problems Paternal Grandfather No Known Problems Paternal Grandmother Relation Name Status Comments Brother 1 Kelvin Alive Brother 2 Alonso Alive Brother 3 brothers: Migra domenic, Obesity Brother 4 brothers: Migra domenic, Obesity Brother 5 Alive Brother: Alive and well, Autism Father Alive Father: Alive a nd well Half-Brother 1 Alive Half brother (M): ADD/ADHD, Asthma, Asthma Half-Brother 2 Half brother (M): ADD/ADHD, Asthma, Asthma Half-Brother 3 Alive Half brother (M): ADD/ADHD, Asthma, Asthma Maternal Grandfather Maternal Grandmother Materna l grandmother: Diabetes mellitus Mother Alive Mother: Alive a nd well Other No family histo ry of Strabismus/amblyopia, No family history of Elevated cholesterol, No family history of Deafness, No family history of Developmental dislocation of hip, No family history of Sudden /CO under age 55, No family history of Seizure disorder Paternal Grandfather Alive Paternal Grandmother Alive Social History Tobacco Use Types Packs/Day Years [...] AM EST Sexual Orientation Not on file Last Filed Vital Signs Vital Sign Reading Time Taken Comments Blood Pressure 136/80 09/29/2020 9:45 AM EST Pulse 104 10/28/2019 8:25 AM EST Temperature 36.5 ??C (97.7 ??F) 11/04/2019 1:30 PM ES T Respiratory Rate - - Oxygen Saturation 96% 10/28/2019 8:25 AM EST Inhaled Oxygen Concentration - - Weight 167 kg (367 lb 12.8 oz) 09/29/2020 9:45 A M EST Height 186.7 cm (6' 1.5 ) 09/29/2020 9:45 AM EST Body Mass Index 47.87 09/29/2020 9:45 AM EST Plan of Treatment Health Maintenance Due Date Last Done Comments DTaP,Tdap,and Td Vaccines (7 - Td or Tdap) 07/12/2022 07/12/2012, 08/23/2004, 08/23/2004, Additional history exists Influenza Vaccines (#1) 2024 07/08/20, 07/06/2020, 06/29/2018, Additional history exists COVID-19 Vaccine ( season) 2024 09/14/2021, 01/05/2021, 12/15/2020 Hepatitis B Vaccines Completed 03/15/2001, 03/15/2001, 2000, Additional history exists Pneumococcal Vaccine Completed 06/17/2001, 06/17/2001, 2000, Additional history exists HIB Vaccines Completed 09/20/2001, 08/25, 2000, Additional history exists IPV Vaccines Completed 08/23/2004, 07/27, 02/20/2002, Additional history exists MMR Vaccines Completed 08/23/2004, 07/27, 09/20/2001, Additional history exists Varicella Vaccines Completed 02/08/2007, 0 06/17/2001, 06/17/2001 HPV Vaccines Completed 12/20/2016, 12/17/2014 Meningococcal Vaccine Completed 12/20/2016, 012 Hepatitis A Vaccines Completed 12/21/2017, 12/21/19 17 Men B Vaccine Aged Out No longer elig ible based on patient's age to complete this topic Insurance [facility] [place] [id number]
--- OUTSIDE RECORDS SUMMARY | 2024-11-06 09:45 | XMS_ITS ---
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 SECA done. Previous weight was 423. Today the patient weight is 425. He has no complaints MEDICATIONS Medication SIG (Take, Route, Frequency, Duration) Notes Start Date End Date Status Wegovy 2.4 MG/0.75ML INJECT 2.4MG SUBCUTANEOUS ONCE WEEKLY 30 DAYS for 30 Active Zepbound 2.5 MG/0.5ML 2.5mg Subcutaneous Weekly for 30 days 09/30/2024 Active Escitalopram Oxalate 20 MG 1.5 tablets Orally Once a day 30mg PO QD Active Lisinopril 20 MG 1 tablet Orally Once a day Active ARIPiprazole 2 MG 1 tablet Orally Once a day Active amLODIPine Besylate 2.5 MG 1 tablet Orally twice a day Active Chlorthalidone 25 MG 1 tablet in the morning with food Orally Active Ondansetron HCl 4 MG 1 tablet as needed for nausea Orally Once a day for 30 days 03/25/2024 Active VITAL SIGNS Heart Rate 87 /min 09/30/2024 Blood pressure systolic 138 mm Hg 09/30/19 25 Blood pressure diastolic 60 mm Hg 025 Weight 425 lbs 09/30/2024 BMI 54.56 kg/m2 09/30/2024 Height 74 in 09/30/2024 Oximetry 96 % 09/30/2024 Encounters Encounter Location Date Provider Diagnosis [address] [address] 09/30/2024 CLARA MOYER Morbid obesity E66.0 1 ; BMI 50.0-59.9, adult Z68.43 ; Primary hypertension I10 and Obstructive sleep apnea G47.33 ASSESSMENTS Encounter Date Diagnosis Assessment Notes Treatment Notes Treatment Clinical Notes Section Notes 09/30/2024 Morbid obesity (ICD-10 - E66.01) Aquiles is a 23-year-old male with a PMH of anxiety, HTN, WALI, obesity that presents for weight management follow-up. Reviewed [facility] holistic and medical approach to weight loss with emphasis on lifestyle modification. 09/30/2024: Weight: 425, BMI: 54.5. SECA reviewed, reveals 1 pound of fat gain and 1 pound muscle mass loss. Patient reassured. Extensive education provided in regards to the necessity of adherence to lifestyle changes. The patient is encouraged to walk x 20 to 30 minutes each day with added strength training twice-weekly. He is encouraged to continue practicing portion control and prioritizing intake of protein. Discussed the importance of adequate hydration, recommending at least 80 ounces of water/day. Patient established with us in March and has successfully lost nearly 15 pounds. Given the seemingly low response, plan to transition to alternative medication Zepbound. Rx for Zepbound 2.5 mg SC weekly sent to pharmacy. Reviewed expectations for PA process/insuranc e coverage. 08/27/24: Weight: 423, BMI: 54.3. SECA reviewed, reveals 2 pounds of fat loss with maintenance of muscle mass. The patient is encouraged to continue to make efforts to increase his physical activity, goal of walking daily with strength training at least 3 times/week. Discussed the importance of adequate nutrition in terms of calorie/protein intake. Patient is encouraged to strive for [id number] /day and minimum 100 g of protein/day. Recommending increased water intake goal 60 to 80 ounces/day. Discussed options for continued use of weight loss medications. Patient would like to try patient's dose of Wegovy 2.4 mg SC weekly x 1 month coupled with more consistent lifestyle changes and follow-up in 1 month. Consider alternative Zepbound pending weight loss on maintenance dose of Wegovy at 2.4 mg. 07/29/2024: Weight: 425, BMI: 54.6. Patient with 3 pounds of weight gain. SECA reviewed, reveals 2 pounds of fat loss and 3 pounds of muscle mass loss. Patient is encouraged to increase physical activity. Reviewed goals of walking 10,000 steps daily with strength training 3 times weekly. Additionally reviewed protein goals. Reviewed protein content educational handout and recommended protein shakes for added daily protein intake. Reviewed the importance of maintenance of lifestyle changes for continued weight loss and maintenance of weight loss. As the patient is not experiencing appetite suppression on 1 mg of Wegovy plan to increase dose to 1.7 mg SC weekly. 06/25/2024: Weight: 422, BMI: 54.28. Patient with 8 pound weight loss, SECA reviewed and reveals fat mass gain with loss of muscle mass. As the patient does have a morbidly obese BMI some muscle loss is expected. However the patient is encouraged to continue to increase physical activity to include daily walking and strength training 2-3 times weekly with the goal of fat mass loss and muscle mass maintenance. He is encouraged to continue to make health-conscious diet choices. Plan to continue Wegovy 1 mg SC weekly. 05/30/2024: Weight: 430, BMI: 55.2. Reviewed SECA/goals for implementing sustainable lifestyle changes. Patient is encouraged to increase current level of physical activity. Goal 8-10k steps/day. He is encouraged to participate in additional physical activity for minimum of 20 minutes 3 times weekly. Discussed importance of some strength training with proper safety/body mechanics for maintenance of muscle mass/bone health. Additionally discussed the importance of adequate caloric/protein intake. Goal 100 to 120 g protein/day. Plan to increase Wegovy to 1mg subcutaneous weekly. All questions answered to the patient's satisfaction. Patient demonstrates understanding of diagnosis and treatments discussed. Follow-up in 4 weeks, sooner should any questions/concer ns arise. Case discussed with collaborating physician Janelle Reese who has reviewed the assessment/plan. Chart, medications, labs, and vital signs reviewed. Dictation completed with the use of [employer] voice recognition software, prone to medical misidentificatio ns and grammatical errors. All errors are unintentional. Although the practitioner does try to identify and correct errors, some may be present. Please do not hesitate to contact the practitioner for clarification. Total time spent was 30 minutes with >50% on coordination of care and patient education. 09/30/2024 BMI 50.0-59.9, adult (ICD-10 - Z68.43) Aquiles is a 23-year-old male with a PMH of anxiety, HTN, WALI, obesity that presents for weight management follow-up. Reviewed [facility] holistic and medical approach to weight loss with emphasis on lifestyle modification. 09/30/2024: Weight: 425, BMI: 54.5. SECA reviewed, reveals 1 pound of fat gain and 1 pound muscle mass loss. Patient reassured. Extensive education provided in regards to the necessity of adherence to lifestyle changes. The patient is encouraged to walk x 20 to 30 minutes each day with added strength training twice-weekly. He is encouraged to continue practicing portion control and prioritizing intake of protein. Discussed the importance of adequate hydration, recommending at least 80 ounces of water/day. Patient established with us in March and has successfully lost nearly 15 pounds. Given the seemingly low response, plan to transition to alternative medication Zepbound. Rx for Zepbound 2.5 mg SC weekly sent to pharmacy. Reviewed expectations for PA process/insuranc e coverage. 08/27/24: Weight: 423, BMI: 54.3. SECA reviewed, reveals 2 pounds of fat loss with maintenance of muscle mass. The patient is encouraged to continue to make efforts to increase his physical activity, goal of walking daily with strength training at least 3 times/week. Discussed the importance of adequate nutrition in terms of calorie/protein intake. Patient is encouraged to strive for [id number] /day and minimum 100 g of protein/day. Recommending increased water intake goal 60 to 80 ounces/day. Discussed options for continued use of weight loss medications. Patient would like to try patient's dose of Wegovy 2.4 mg SC weekly x 1 month coupled with more consistent lifestyle changes and follow-up in 1 month. Consider alternative Zepbound pending weight loss on maintenance dose of Wegovy at 2.4 mg. 07/29/2024: Weight: 425, BMI: 54.6. Patient with 3 pounds of weight gain. SECA reviewed, reveals 2 pounds of fat loss and 3 pounds of muscle mass loss. Patient is encouraged to increase physical activity. Reviewed goals of walking 10,000 steps daily with strength training 3 times weekly. Additionally reviewed protein goals. Reviewed protein content educational handout and recommended protein shakes for added daily protein intake. Reviewed the importance of maintenance of lifestyle changes for continued weight loss and maintenance of weight loss. As the patient is not experiencing appetite suppression on 1 mg of Wegovy plan to increase dose to 1.7 mg SC weekly. 06/25/2024: Weight: 422, BMI: 54.28. Patient with 8 pound weight loss, SECA reviewed and reveals fat mass gain with loss of muscle mass. As the patient does have a morbidly obese BMI some muscle loss is expected. However the patient is encouraged to continue to increase physical activity to include daily walking and strength training 2-3 times weekly with the goal of fat mass loss and muscle mass maintenance. He is encouraged to continue to make health-conscious diet choices. Plan to continue Wegovy 1 mg SC weekly. 05/30/2024: Weight: 430, BMI: 55.2. Reviewed SECA/goals for implementing sustainable lifestyle changes. Patient is encouraged to increase current level of physical activity. Goal 8-10k steps/day. He is encouraged to participate in additional physical activity for minimum of 20 minutes 3 times weekly. Discussed importance of some strength training with proper safety/body mechanics for maintenance of muscle mass/bone health. Additionally discussed the importance of adequate caloric/protein intake. Goal 100 to 120 g protein/day. Plan to increase Wegovy to 1mg subcutaneous weekly. All questions answered to the patient's satisfaction. Patient demonstrates understanding of diagnosis and treatments discussed. Follow-up in 4 weeks, sooner should any questions/concer ns arise. Case discussed with collaborating physician Janelle Reese who has reviewed the assessment/plan. Chart, medications, labs, and vital signs reviewed. Dictation completed with the use of [employer] voice recognition software, prone to medical misidentificatio ns and grammatical errors. All errors are unintentional. Although the practitioner does try to identify and correct errors, some may be present. Please do not hesitate to contact the practitioner for clarification. Total time spent was 30 minutes with >50% on coordination of care and patient education. 09/30/2024 Primary hypertension (ICD-10 - I10) Aquiles is a 23-year-old male with a PMH of anxiety, HTN, WALI, obesity that presents for weight management follow-up. Reviewed [facility] holistic and medical approach to weight loss with emphasis on lifestyle modification. 09/30/2024: Weight: 425, BMI: 54.5. SECA reviewed, reveals 1 pound of fat gain and 1 pound muscle mass loss. Patient reassured. Extensive education provided in regards to the necessity of adherence to lifestyle changes. The patient is encouraged to walk x 20 to 30 minutes each day with added strength training twice-weekly. He is encouraged to continue practicing portion control and prioritizing intake of protein. Discussed the importance of adequate hydration, recommending at least 80 ounces of water/day. Patient established with us in March and has successfully lost nearly 15 pounds. Given the seemingly low response, plan to transition to alternative medication Zepbound. Rx for Zepbound 2.5 mg SC weekly sent to pharmacy. Reviewed expectations for PA process/insuranc e coverage. 08/27/24: Weight: 423, BMI: 54.3. SECA reviewed, reveals 2 pounds of fat loss with maintenance of muscle mass. The patient is encouraged to continue to make efforts to increase his physical activity, goal of walking daily with strength training at least 3 times/week. Discussed the importance of adequate nutrition in terms of calorie/protein intake. Patient is encouraged to strive for [id number]-siesffh /day and minimum 100 g of protein/day. Recommending increased water intake goal 60 to 80 ounces/day. Discussed options for continued use of weight loss medications. Patient would like to try patient's dose of Wegovy 2.4 mg SC weekly x 1 month coupled with more consistent lifestyle changes and follow-up in 1 month. Consider alternative Zepbound pending weight loss on maintenance dose of Wegovy at 2.4 mg. 07/29/2024: Weight: 425, BMI: 54.6. Patient with 3 pounds of weight gain. SECA reviewed, reveals 2 pounds of fat loss and 3 pounds of muscle mass loss. Patient is encouraged to increase physical activity. Reviewed goals of walking 10,000 steps daily with strength training 3 times weekly. Additionally reviewed protein goals. Reviewed protein content educational handout and recommended protein shakes for added daily protein intake. Reviewed the importance of maintenance of lifestyle changes for continued weight loss and maintenance of weight loss. As the patient is not experiencing appetite suppression on 1 mg of Wegovy plan to increase dose to 1.7 mg SC weekly. 06/25/2024: Weight: 422, BMI: 54.28. Patient with 8 pound weight loss, SECA reviewed and reveals fat mass gain with loss of muscle mass. As the patient does have a morbidly obese BMI some muscle loss is expected. However the patient is encouraged to continue to increase physical activity to include daily walking and strength training 2-3 times weekly with the goal of fat mass loss and muscle mass maintenance. He is encouraged to continue to make health-conscious diet choices. Plan to continue Wegovy 1 mg SC weekly. 05/30/2024: Weight: 430, BMI: 55.2. Reviewed SECA/goals for implementing sustainable lifestyle changes. Patient is encouraged to increase current level of physical activity. Goal 8-10k steps/day. He is encouraged to participate in additional physical activity for minimum of 20 minutes 3 times weekly. Discussed importance of some strength training with proper safety/body mechanics for maintenance of muscle mass/bone health. Additionally discussed the importance of adequate caloric/protein intake. Goal 100 to 120 g protein/day. Plan to increase Wegovy to 1mg subcutaneous weekly. All questions answered to the patient's satisfaction. Patient demonstrates understanding of diagnosis and treatments discussed. Follow-up in 4 weeks, sooner should any questions/concer ns arise. Case discussed with collaborating physician Janelle Reese who has reviewed the assessment/plan. Chart, medications, labs, and vital signs reviewed. Dictation completed with the use of [employer] voice recognition software, prone to medical misidentificatio ns and grammatical errors. All errors are unintentional. Although the practitioner does try to identify and correct errors, some may be present. Please do not hesitate to contact the practitioner for clarification. Total time spent was 30 minutes with >50% on coordination of care and patient education. 09/30/2024 Obstructive sleep apnea (ICD-10 - G47.33) Aquiles is a 23-year-old male with a PMH of anxiety, HTN, WALI, obesity that presents for weight management follow-up. Reviewed [facility] holistic and medical approach to weight loss with emphasis on lifestyle modification. 09/30/2024: Weight: 425, BMI: 54.5. SECA reviewed, reveals 1 pound of fat gain and 1 pound muscle mass loss. Patient reassured. Extensive education provided in regards to the necessity of adherence to lifestyle changes. The patient is encouraged to walk x 20 to 30 minutes each day with added strength training twice-weekly. He is encouraged to continue practicing portion control and prioritizing intake of protein. Discussed the importance of adequate hydration, recommending at least 80 ounces of water/day. Patient established with us in March and has successfully lost nearly 15 pounds. Given the seemingly low response, plan to transition to alternative medication Zepbound. Rx for Zepbound 2.5 mg SC weekly sent to pharmacy. Reviewed expectations for PA process/insuranc e coverage. 08/27/24: Weight: 423, BMI: 54.3. SECA reviewed, reveals 2 pounds of fat loss with maintenance of muscle mass. The patient is encouraged to continue to make efforts to increase his physical activity, goal of walking daily with strength training at least 3 times/week. Discussed the importance of adequate nutrition in terms of calorie/protein intake. Patient is encouraged to strive for [id number] /day and minimum 100 g of protein/day. Recommending increased water intake goal 60 to 80 ounces/day. Discussed options for continued use of weight loss medications. Patient would like to try patient's dose of Wegovy 2.4 mg SC weekly x 1 month coupled with more consistent lifestyle changes and follow-up in 1 month. Consider alternative Zepbound pending weight loss on maintenance dose of Wegovy at 2.4 mg. 07/29/2024: Weight: 425, BMI: 54.6. Patient with 3 pounds of weight gain. SECA reviewed, reveals 2 pounds of fat loss and 3 pounds of muscle mass loss. Patient is encouraged to increase physical activity. Reviewed goals of walking 10,000 steps daily with strength training 3 times weekly. Additionally reviewed protein goals. Reviewed protein content educational handout and recommended protein shakes for added daily protein intake. Reviewed the importance of maintenance of lifestyle changes for continued weight loss and maintenance of weight loss. As the patient is not experiencing appetite suppression on 1 mg of Wegovy plan to increase dose to 1.7 mg SC weekly. 06/25/2024: Weight: 422, BMI: 54.28. Patient with 8 pound weight loss, SECA reviewed and reveals fat mass gain with loss of muscle mass. As the patient does have a morbidly obese BMI some muscle loss is expected. However the patient is encouraged to continue to increase physical activity to include daily walking and strength training 2-3 times weekly with the goal of fat mass loss and muscle mass maintenance. He is encouraged to continue to make health-conscious diet choices. Plan to continue Wegovy 1 mg SC weekly. 05/30/2024: Weight: 430, BMI: 55.2. Reviewed SECA/goals for implementing sustainable lifestyle changes. Patient is encouraged to increase current level of physical activity. Goal 8-10k steps/day. He is encouraged to participate in additional physical activity for minimum of 20 minutes 3 times weekly. Discussed importance of some strength training with proper safety/body mechanics for maintenance of muscle mass/bone health. Additionally discussed the importance of adequate caloric/protein intake. Goal 100 to 120 g protein/day. Plan to increase Wegovy to 1mg subcutaneous weekly. All questions answered to the patient's satisfaction. Patient demonstrates understanding of diagnosis and treatments discussed. Follow-up in 4 weeks, sooner should any questions/concer ns arise. Case discussed with collaborating physician Janelle Reese who has reviewed the assessment/plan. Chart, medications, labs, and vital signs reviewed. Dictation completed with the use of [employer] voice recognition software, prone to medical misidentificatio ns and grammatical errors. All errors are unintentional. Although the practitioner does try to identify and correct errors, some may be present. Please do not hesitate to contact the practitioner for clarification. Total time spent was 30 minutes with >50% on coordination of care and patient education. PLAN OF TREATMENT Medication Medication Name Sig Start Date Stop Date Notes Zepbound 2.5 MG/0.5ML 2.5mg Subcutaneous Weekly for 30 days 09/30/2024 Next Appt Details Provider Name:CLARA Ch, 12/01/2024 08:45:00 AM, [address] [place] [address], [place], [id number], MEDICATIONS ADMINISTERED Medication Instructions Date of Administration Dosage Notes MICC B12 INJECTION 09/30/2024 1 mL Progress Notes * Aquiles PAGEDOB:2000 ([age] yo M)Acc No.[id number]:09/30/2024 Patient:??Aquiles PAGE Provider:??CLARA MOYER PA-C :2000?Age:24 Y?Sex:Theo sharpe Date:09/30/2024 Address:[address] [place] [address], [id number] Subjective: * Chief Complaints: * ?1. Patient is here for weight management follow up. SECA done. Previous weight was 423. Today the patient weight is 425. He has no complaints. * HPI: ?Constitutional:? Aquiles is a 24-year-old male with a PMH of anxiety, HTN, obesity that presents for weight management follow-up. Patient taking Wegovy 2.4 mg SC weekly with compliance. Reports moderate appetite suppression. Denies the presence of side effects including nausea, vomiting, constipation, or fatigue. Reports portion control is easier at this dose. Averaging 2 meals/day. Continues to struggle with physical activity. Walking around stores, not exercising otherwise. Trying to get more protein -- main sources of protein include meat, protein shakes and yogurt. States water intake has decreased, averaging 42 oz/day. * ROS:?Constitutional: Denies fever, night sweats, excessive fatigue, or changes in sleep. ???CV: Denies chest pain or heart palpitations. ???Respiratory: Denies SOB, wheezing, or pleuritic pain. ???GI: Denies abdominal pain, n/v/d, constipation, blood in stools, pain associated with eating, indigestion, or difficulty/pain with swallowing. ???MSK: Denies back pain, joint deformity/pain, or muscle weakness. ???Integumentary: Denies skin changes. ???Endocrine: Denies polyuria, polyphagia, or polydipsia. No heat/cold intolerance or excessive thirst. * Medical History:??Morbid obe sity, Primary hypertension, Obstructive sleep apnea. * Family History:??Father: ali ve, COPD, alcoholism.??Mother: alive, hypertension, thyroid disease, anxiety.??Siblings: hypertension, anxiety, autism.??4 brother(s) . .?? * Medications:??Taking Escital opram Oxalate 20 MG Tablet 1.5 tablets Orally Once a day , Notes to Pharmacist: 30mg PO QD, Taking Lisinopril 20 MG Tablet 1 tablet Orally Once a day , Taking ARIPiprazole 2 MG Tablet 1 tablet Orally Once a day , Taking amLODIPine Besylate 2.5 MG Tablet 1 tablet Orally twice a day , Taking Chlorthalidone 25 MG Tablet 1 tablet in the morning with food Orally , Taking Ondansetron HCl 4 MG Tablet 1 tablet as needed for nausea Orally Once a day , Taking Wegovy 2.4 MG/0.75ML Solution Auto-injector INJECT 2.4MG SUBCUTANEOUS ONCE WEEKLY 30 DAYS , Medication List reviewed and reconciled with the patient * Allergies:??Bactrim. Objective: * Vitals:??HR:87/min, BP:138/6 0mm Hg, Wt:425lbs, BMI:54.56Index, Ht: 74 in, Oxygen sat %:96%. * Physical Examination:?General: Age appropriate, well-appearing 24-year-old male in no acute distress, speaking in full sentences without respiratory compromise. Well groomed, well developed. Alert, interactive. ?Skin: Warm, dry and intact. No lesions/rashes/erythema. ?HEENT: Normocephalic/atraumatic. ?CV: RRR. ?Lungs: Clear to auscultation bilaterally. ?Neuro: CN II-XII grossly intact. Steady gait with non-assisted ambulation observed. ?Psych: Stable mood and affect. Assessment: * Assessment: 1.??Morbid obesity - E66.01 (Primary)??2.??BMI 50.0-59.9, adult - Z68.43??3.??Primary hypertension - I10??4.??Obstructive sleep apnea - G47.33?? Aquiles is a 23-year-old male with a PMH of anxiety, HTN, WALI, obesity that presents for weight management follow-up. Reviewed [facility] holistic and medical approach to weight loss with emphasis on lifestyle modification. 09/30/2024: Weight: 425, BMI: 54.5. SECA reviewed, reveals 1 pound of fat gain and 1 pound muscle mass loss. Patient reassured. Extensive education provided in regards to the necessity of adherence to lifestyle changes. The patient is encouraged to walk x 20 to 30 minutes each day with added strength training twice-weekly. He is encouraged to continue practicing portion control and prioritizing intake of protein. Discussed the importance of adequate hydration, recommending at least 80 ounces of water/day. Patient established with us in March and has successfully lost nearly 15 pounds. Given the seemingly low response, plan to transition to alternative medication Zepbound. Rx for Zepbound 2.5 mg SC weekly sent to pharmacy. Reviewed expectations for PA process/insurance coverage. 08/27/24: Weight: 423, BMI: 54.3. SECA reviewed, reveals 2 pounds of fat loss with maintenance of muscle mass. The patient is encouraged to continue to make efforts to increase his physical activity, goal of walking daily with strength training at least 3 times/week. Discussed the importance of adequate nutrition in terms of calorie/protein intake. Patient is encouraged to strive for [id number]/day and minimum 100 g of protein/day. Recommending increased water intake goal 60 to 80 ounces/day. Discussed options for continued use of weight loss medications. Patient would like to try patient's dose of Wegovy 2.4 mg SC weekly x 1 month coupled with more consistent lifestyle changes and follow-up in 1 month. Consider alternative Zepbound pending weight loss on maintenance dose of Wegovy at 2.4 mg. 07/29/2024: Weight: 425, BMI: 54.6. Patient with 3 pounds of weight gain. SECA reviewed, reveals 2 pounds of fat loss and 3 pounds of muscle mass loss. Patient is encouraged to increase physical activity. Reviewed goals of walking 10,000 steps daily with strength training 3 times weekly. Additionally reviewed protein goals. Reviewed protein content educational handout and recommended protein shakes for added daily protein intake. Reviewed the importance of maintenance of lifestyle changes for continued weight loss and maintenance of weight loss. As the patient is not experiencing appetite suppression on 1 mg of Wegovy plan to increase dose to 1.7 mg SC weekly. 06/25/2024: Weight: 422, BMI: 54.28. Patient with 8 pound weight loss, SECA reviewed and reveals fat mass gain with loss of muscle mass. As the patient does have a morbidly obese BMI some muscle loss is expected. However the patient is encouraged to continue to increase physical activity to include daily walking and strength training 2-3 times weekly with the goal of fat mass loss and muscle mass maintenance. He is encouraged to continue to make health-conscious diet choices. Plan to continue Wegovy 1 mg SC weekly. 05/30/2024: Weight: 430, BMI: 55.2. Reviewed SECA/goals for implementing sustainable lifestyle changes. Patient is encouraged to increase current level of physical activity. Goal 8-10k steps/day. He is encouraged to participate in additional physical activity for minimum of 20 minutes 3 times weekly. Discussed importance of some strength training with proper safety/body mechanics for maintenance of muscle mass/bone health. Additionally discussed the importance of adequate caloric/protein intake. Goal 100 to 120 g protein/day. Plan to increase Wegovy to 1mg subcutaneous weekly. All questions answered to the patient's satisfaction. Patient demonstrates understanding of diagnosis and treatments discussed. Follow-up in 4 weeks, sooner should any questions/concerns arise. Case discussed with collaborating physician Janelle Reese who has reviewed the assessment/plan. Chart, medications, labs, and vital signs reviewed. Dictation completed with the use of [employer] voice recognition software, prone to medical misidentifications and grammatical errors. All errors are unintentional. Although the practitioner does try to identify and correct errors, some may be present. Please do not hesitate to contact the practitioner for clarification. Total time spent was 30 minutes with >50% on coordination of care and patient education. Plan: * Treatment: * Therapeutic Injections:? MICC B12 INJECTION : 1 mL (Route: Intramuscular) given by Tisha Guzman on left deltoid * Procedure Codes:??26795 P/M BOX SPRING UPHOLSTERER, INDIV 15 MIN * Images: Billing Information: * Visit Code:?? 02659 Office Visit, Est Pt., Level 4. * Procedure Codes:?? 69941 P/M BOX SPRING UPHOLSTERER, INDIV 15 MIN. * Sign off status: Completed true * Provider:??CLARA MOYER PA-C Date:?? 09/30/2024 History and Physical Notes * HPI (History of Present Illness) Category Sub-Category Detail Notes Category Not es Constitutional Aquiles is a 24 -year-old male with a PMH of anxiety, HTN, obesity that presents for weight management follow-up. Patient taking Wegovy 2.4 mg SC weekly with compliance. Reports moderate appetite suppression. Denies the presence of side effects including nausea, vomiting, constipation, or fatigue. Reports portion control is easier at this dose. Averaging 2 meals/day. Continues to struggle with physical activity. Walking around stores, not exercising otherwise. Trying to get more protein -- main sources of protein include meat, protein shakes and yogurt. States water intake has decreased, averaging 42 oz/day. Physical Examination Category Sub-Category Detail Notes Section Note s General: Age appropriate, well-appearing 24-year-old male in no acute distress, speaking in full sentences without respiratory compromise. Well groomed, well developed. Alert, interactive. Skin: Warm, dry and intact. No lesions/rashes/erythema. HEENT: Normocephalic/atraumatic. CV: RRR. Lungs: Clear to auscultation bilaterally. Neuro: CN II-XII grossly intact. Steady gait with non-assisted ambulation observed. Psych: Stable mood and affect.
--- OUTSIDE RECORDS SUMMARY | 2024-11-06 09:45 | XMS_ITS | Encounter Summary ---
Author Organization [facility] Address [address] [place] [phone] Phone Care Team Providers Care Tree Topper Name Role Phone Jose Moore MD Primary Care Provider Reason for Visit * Reason Comments Med Refill Encounter Details Date Type Department Care Team (Late st Contact Info) Description 01/04/2019 [facility]ill [facility] [address] [place] [address] Ludwig Constantino MD Acne, unspecified acne type (Primary Dx) Social History Tobacco Use Types Packs/Day Years Used Date Smoking Tobacco: Never Smokeless Tobacco: Never Alcohol Use Standard Drinks/Week Comments Never 0 (1 standard drink = 0.6 oz pur e alcohol) Hunger/Food Answer Date Recorded No 12/30/2018 Stable Housing Answer Date Recorded 0 12/30/2018 Transportation Concerns Answer Date Rec orded No 12/30/2018 Hazards in Home Answer Date Recorded No 12/30/2018 Financing Utilities Answer Date Recorde d No 12/30/2018 Safety at Home Answer Date Recorded No 12/30/2018 Outside Support Answer Date Recorded No 12/30/2018 Understanding Health Concerns Answer Da te Recorded No 12/30/2018 Financing Health Concerns Answer Date R ecorded No 12/30/2018 Missing School or Work Answer Date Dariel rded No 12/30/2018 Sex and Gender Information Value Date Recorded Sex Assigned at Not on file Legal Sex Male 6:16 PM EDT Gender Identity Male 11/16/2020 9:01 AM EST Sexual Orientation Not on file documented as of this encounter Miscellaneous Notes * Telephone Encounter - Sabina Carrington MA - 01/04/2019 2:28 PM EDT Request from pharmacy for Rx Clindamycin Rx sent to [facility] verified documented in this encounter Plan of Treatment Not on file documented as of this encounter Visit Diagnoses Diagnosis Acne, unspecified acne type- Primary documented in this encounter Care Teams Tree Topper Relationship Specialty Start Date End Date Jose Moore MD [address] [place] [address] PCP - General 01/30/18 08/04/24 documented as of this encounter
--- OUTSIDE RECORDS SUMMARY | 2024-11-06 09:45 | XMS_ITS | Encounter Summary ---
Author Organization [facility] Address [address] [place] [address] Phone Care Team Providers Care Synoptic Meteorologist Name Role Phone Jose Moore MD Primary Care Provider [phone] Reason for Visit * Reason Comments Med Refill Encounter Details Date Type Department Care Team (Late st Contact Info) Description 02/22/2019 Refill [facility] [id number] [place] [address] Jose Moore MD [address] [place] [id number] Anxiety Social History Tobacco Use Types Packs/Day [...] encounter Miscellaneous Notes * Telephone Encounter - Jose Moore MD - 02/24/2019 10:09 AM EDT Prescriptions reviewed and eprescribed to pharmacy * Telephone Encounter - Diego Bermudez MA - 02/22/2019 2:42 PM EDT Request for refill on Fluoxetine 20 MG capsule. Last med check- 01/23/19 Last [facility]- 12/30/[address] Moore for review and send to the pharmacy. documented in this encounter Plan of Treatment Not on file documented as of this encounter Visit Diagnoses Diagnosis Anxiety Anxiety state, unspecified documented in this encounter Care Teams Synoptic Meteorologist Relationship Specialty Start Date End Date Jose Moore MD [address] [place] [address] PCP - General 01/30/18 08/04/24 documented as of this encounter
--- OUTSIDE RECORDS SUMMARY | 2024-11-06 09:45 | XMS_ITS | Encounter Summary ---
Author Organization [facility] Address [address] [place] [address] Phone Care Team Providers Care Scanner Supervisor Name Role Phone Jose Moore MD Primary Care Provider Reason for Visit * Reason Comments Med Refill Encounter Details Date Type Department Care Team (Late st Contact Info) Description 06/29/2021 Refill [facility] [address] [place], [place] [id number] Jose Moore MD [address] [place] [address] Acne, unspecified acne type Social History Tobacco Use Types Packs/Day Years [...] Telephone Encounter - Jose Moore MD - 06/29/2021 8:21 AM EDT Prescriptions reviewed and eprescribed to pharmacy * Telephone Encounter - Yuliya Mendoza MA - 06/29/2021 8:00 AM EDT Refill request for Clindamycin 1% gel Last [facility] 02/12/20 Last refill 06/06/21 Aged out 05/2021 Please review documented in this encounter Plan of Treatment Not on file documented as of this encounter Visit Diagnoses Diagnosis Acne, unspecified acne type documented in this encounter Care Teams Scanner Supervisor Relationship Specialty Start Date End Date Jose Moore MD [address] [facility] [place] [address] PCP - General 01/30/18 08/04/24 documented as of this encounter
--- OUTSIDE RECORDS SUMMARY | 2024-11-06 09:45 | XMS_ITS | Encounter Summary ---
Author Organization [facility] Address [address] [place] [address] Phone Care Team Providers Care Group Billing Coordinator Name Role Phone Jose Moore MD Primary Care Provider [phone] Encounter Details Date Type Department Care Team (Late st Contact Info) Description 02/10/2018 Conversion Encounter [facility] [address] [place] [address] Jose Moore MD [address] [place] [address] Social History Tobacco Use Types Packs/Day Years [...] on filedocumented in this encounter Care Teams Group Billing Coordinator Relationship Specialty Start Date End Date Jose Moore MD [address] [place] [address] PCP - General 01/30/18 08/04/24 documented as of this encounter
--- OUTSIDE RECORDS SUMMARY | 2024-11-06 09:45 | XMS_ITS | Encounter Summary ---
Author Organization [facility] Address [address] [place] [address] Phone Care Team Providers Care Erp Programmer Name Role Phone Jose Moore MD Primary Care Provider [phone] Reason for Visit * Reason Comments Med Refill Encounter Details Date Type Department Care Team (Late st Contact Info) Description 03/11/2020 Refill [facility] [address] [place] [address] Jose Moore MD [address] [place] [address] Anxiety Social History Tobacco Use Types Packs/Day [...] Telephone Encounter - Jose Moore MD - 03/12/2020 2:00 PM EDT ADD/ADHD RX reviewed and eprescribed to pharmacy. * Telephone Encounter - Calista Bauer NP - 03/12/2020 8:[address] Moore is in the office today * Telephone Encounter - Yuliya Mendoza MA - 03/12/2020 8:35 AM EDT Refill request for Fluoxetine 20mg Last [facility] was 02/12/20 Last refill was 11/04/[address] Moore documented in this encounter Plan of Treatment Not on file documented as of this encounter Visit Diagnoses Diagnosis Anxiety Anxiety state, unspecified documented in this encounter Care Teams Erp Programmer Relationship Specialty Start Date End Date Jose Moore MD [address] [place] [address] PCP - General 01/30/18 08/04/24 documented as of this encounter
--- OUTSIDE RECORDS SUMMARY | 2024-11-06 09:45 | XMS_ITS | Patient Health Record ---
Author Organization [facility] Address [address] [place] [address] Care Team Providers Care Senior Svp Name Role Phone SHEA REESE Unavailable [phone] FRANCO HERNANDEZ Unavailable [phone] CLARA MOYER Unavailable [phone] ALLERGIES Allergen (clinical drug ingredient) Drug/Non Drug Allergy documented on EMR Reaction Allergy Type Onset Date Status sulfamethoxazole / trimethoprim Bactrim Unknown Drug Allergy Active REASON FOR REFERRAL Diagnosis 1 BMI 50.0-59.9, adult (Z68.43) Referred Organization [facility] Referred Provider SHEA REESE Referred Address [address] [facility], [place],[address], Referred Provider Specialty Unknown Referral Priority Routine MEDICATIONS Medication SIG (Take, Route, Frequency, Duration) Notes Start Date End Date Status Lisinopril 20 MG 1 tablet Orally Once a day Active Escitalopram Oxalate 20 MG 1.5 tablets Orally Once a day 30mg PO QD Active amLODIPine Besylate 2.5 MG 1 tablet Orally twice a day Active ARIPiprazole 2 MG 1 tablet Orally Once a day Active Zepbound 5 MG/0.5ML Inject 5mg Subcutaneous Weekly for 30 days Active Ondansetron HCl 4 MG 1 tablet as needed for nausea Orally Once a day for 30 days 03/25/2024 Active Chlorthalidone 25 MG 1 tablet in the morning with food Orally Active Wegovy 2.4 MG/0.75ML INJECT 2.4MG SUBCUTANEOUS ONCE WEEKLY 30 DAYS for 30 Active PROBLEMS Problem Type ICD Code Onset Dates Problem Status W/U Status Risk SNOMED Code Notes Problem Morbid obesity (E66.01) Active confirmed 445301383 Problem Body mass index [BMI] 45.0-49.9, adult (Z68.42) Active confirmed 504077739 Problem BMI 50.0-59.9, adult (Z68.43) Active confirmed Body mass index 40+ - severely obese (842940627) Problem Obstructive sleep apnea (G47.33) Active confirmed 59246746 Problem Primary hypertension (I10) Active confirmed 25007641 VITAL SIGNS Heart Rate 81 /min 10/28/2024 Oximetry 96 % 10/28/2024 Blood pressure diastolic 74 mm Hg 10/28/2024 Height 74 in 10/28/2024 Blood pressure systolic 120 mm Hg 10/28/2024 Weight 427 lbs 10/28/2024 BMI 54.82 kg/m2 10/28/2024 Encounters Encounter Location Date Provider Diagnosis [facility] [address] [place] [address] 02/28/[address] [address] [place] [address] 04/22/20[facility] [address] [place] [address] [facility] [facility] [address] [place] [address] 05/13/2024 [facility] [address] [place] [address] 05/20/2024 [facility] [address] [place] [address] 07/28/2024 [place] [facility] [address] [place] [address] 03/25/2024 SHEA REESE Morbid obesity E66.0 1 ; Body mass index [BMI] 45.0-49.9, adult Z68.42 ; Primary hypertension I10 and Obstructive sleep apnea G47.[address] [facility] [facility] [address] [place] [address] 04/29/2024 SHEA REESE Morbid obesity E66.0 1 ; Body mass index [BMI] 45.0-49.9, adult Z68.42 ; Primary hypertension I10 and Obstructive sleep apnea G47.33 [address] [place] [address] 05/30/2024 CLARA [place] Morbid obesity E66.0 1 ; BMI 50.0-59.9, adult Z68.43 ; Primary hypertension I10 and Obstructive sleep apnea G47.33 [address] [facility] [address] [place] [address] 06/25/2024 CLARA [place] Morbid obesity E66.0 1 ; BMI 50.0-59.9, adult Z68.43 ; Primary hypertension I10 and Obstructive sleep apnea G47.33 [address] [facility] [address] [place] [address] 07/29/2024 CLARA [place] Morbid obesity E66.0 1 ; BMI 50.0-59.9, adult Z68.43 ; Primary hypertension I10 and Obstructive sleep apnea G47.33 [address] [facility] [address] [place] [address] 08/27/2024 CLARA [place] Morbid obesity E66.0 1 ; BMI 50.0-59.9, adult Z68.43 ; Primary hypertension I10 and Obstructive sleep apnea G47.33 [address] [facility] [address] [place] [address] 09/30/2024 CLARA [place] Morbid obesity E66.0 1 ; BMI 50.0-59.9, adult Z68.43 ; Primary hypertension I10 and Obstructive sleep apnea G47.[address] [address] 10/28/2024 CLARA [place] Morbid obesity E66.0 1 ; BMI 50.0-59.9, adult Z68.43 ; Primary hypertension I10 and Obstructive sleep apnea G47.[address] [facility] [address] [place] [address] 04/02/[address] [facility] [address] [place] [address] 04/03/[address] [facility] [address] [place] [address] 04/09/2024 TALAL REESE [address] [facility] [address] [place] [address] 04/21/[address] [facility] [address] [place] [address] 04/29/2024 TALHONORIO REESE [facility] [address] [facility] [address] [place] [address] 09/30/2024 CLARA MOYER ASSESSMENTS Encounter Date Diagnosis Assessment Notes Treatment Notes Treatment Clinical Notes Section Notes 03/25/2024 Morbid obesity (ICD-10 - E66.01) WT MAN CONSULT: Patient was reassured and welcomed to the practice. We discussed that we stress a hollistic medical approach with emphasis on lifestyle modification. Patient was informed that a healthy lifestyle with exercise and good eating habits can help reduce his risk of medical complications. He is explained that obesity increases his risk of diabetes, cardiovascular disease, or organ damage. We spent a lot of time discussing the relationship between food, exercise, sleep, mental health and obesity. Patient was counseled on the importance EATING local, organic food when possible. Patient was educated on clean 15 and dirty dozen. I provided information about reading books called The Food Rules by Lele Sam and Eat Fat Get Lean by Dr Waylon Bowman. Self education is important in the journey for weight management. Patient was offered diagnostic testing. We want to measure visceral adiposity, advanced body composition, adverse lipids, fatty acid balance, risk for heart disease and atherosclerosis, markers of inflammation and genetic susceptibility. Patient was counseled on weight management and was advised to lose weight using A. Meal Replacement Products Patient was educated on the replacement products called optifast. This is a good way of taking fixed amount of calories. It has been shown in studies to be ineffective weight management tool. This however has to be coupled with lifestyle intervention as well as laboratory data and EKG monitoring. It is impossible to know how a person will tolerate complete meal replacement. The side effects of meal replacement and weight loss could include syncopal attacks, dizziness, gallstones, potential cholecystectomy, possible heart attack and even . The benefits of meal replacement would be potential weight loss but no guarantees can be made. Meal replacement products are not covered by insurance. Once the patient has bought these products we cannot return them B. Lifestyle management which includes several strategies as below 1. Eat a low carbohydrate good fat good protein diet. Eliminate refined carbohydrates from the diet. Continue blood sugar and sugared beverages. Eat local organic when possible. Cook your own meals. Read food labels. None about healthy snacks. Portion control and food with low glycemic index 2. Exercise regularly. Try to get at least 6000 steps a day. Use a predominant to track activity level. Consider using apps like 7 mionute excercise, myfitnesspal, lose it, stick as needed for self-monitoring and weight management. Consider group exercises. Consider hiring a personal lines agent. Regular exercise is bernard to sustainable health and prevents as a buffer against weight regain 3. Sleep is most important for healing. Tried to sleep at least 8 hours a night. A good quality sleep needs a sleep ritual with ideal room temperature of around 68. It might help to take a shower and have no electronics in the room and sleep in a very dark room without artificial light. Start her sleep routine and get up early in the morning and go to bed on time 4. Make a social connection. Surround yourself with positive people with positive energy. Connect with friends and family. 5. Get into the habit of meditating and mindfulness while doing everything. 6. Go outside and connect with nature. C. Prescription medications Patient was educated on the use of prescription medications for medical weight loss. This is a growing list and includes phentermine, Topamax,Qsymia, contrave, belviq and saxenda. All prescription medications could have side effects including but not limited to kidney stones, seizure disorder cardiac arrhythmias heart attack pancreatitis etc. etc.. Patient was encouraged to read the prescription insert and have coaching with their pharmacist and make an informed decision about taking medication and know that these medications are being prescribed with good intentions and we do not know how a patient would react to her medication. Sudden medications are FDA approved for weight loss and there is also off label use depending on patient's inability to afford medications in an attempt to lose weight D. Behavioral counseling was done to establish a relationship between food and an mood. Patient was provided information about local counseling and psychiatry and Dr Lundberg at [facility]. We would like to cover regular topics and build on low glycemic eating exercise mindful eating, using yoga and meditation along with deep breathing and connecting with friends and family. E. MASS PAT reviewed, Patient's current medications were reviewed and opinion was given on medication that can cause weight gain and can be substituted F. Patient was assessed for risk with obesity including and not limiting to atherosclerosis heart disease stroke kidney disease, restrictive lung disease, irritable bowel syndrome and overall mortality. Risk of developing prediabetes diabetes and metabolic syndrome was discussed G. Therapeutic plan: We have decided to make therapeutic plan which would include choosing wisely on calories restricting portion getting active, tracking weight, getting good quality sleep and working on time management H. Patient will follow up in (2-3) weeks for weight management Total time spent today was 60 minutes of which greater than 50% was spent on coordinating and counseling 03/25/2024 Body mass index [BMI] 45.0-49.9, adult (ICD-10 - Z68.42) WT MAN CONSULT: Patient was reassured and welcomed to the practice. We discussed that we stress a hollistic medical approach with emphasis on lifestyle modification. Patient was informed that a healthy lifestyle with exercise and good eating habits can help reduce his risk of medical complications. He is explained that obesity increases his risk of diabetes, cardiovascular disease, or organ damage. We spent a lot of time discussing the relationship between food, exercise, sleep, mental health and obesity. Patient was counseled on the importance EATING local, organic food when possible. Patient was educated on clean 15 and dirty dozen. I provided information about reading books called The Food Rules by Lele Sam and Eat Fat Get Lean by Dr Waylon Bowman. Self education is important in the journey for weight management. Patient was offered diagnostic testing. We want to measure visceral adiposity, advanced body composition, adverse lipids, fatty acid balance, risk for heart disease and atherosclerosis, markers of inflammation and genetic susceptibility. Patient was counseled on weight management and was advised to lose weight using A. Meal Replacement Products Patient was educated on the replacement products called optifast. This is a good way of taking fixed amount of calories. It has been shown in studies to be ineffective weight management tool. This however has to be coupled with lifestyle intervention as well as laboratory data and EKG monitoring. It is impossible to know how a person will tolerate complete meal replacement. The side effects of meal replacement and weight loss could include syncopal attacks, dizziness, gallstones, potential cholecystectomy, possible heart attack and even . The benefits of meal replacement would be potential weight loss but no guarantees can be made. Meal replacement products are not covered by insurance. Once the patient has bought these products we cannot return them B. Lifestyle management which includes several strategies as below 1. Eat a low carbohydrate good fat good protein diet. Eliminate refined carbohydrates from the diet. Continue blood sugar and sugared beverages. Eat local organic when possible. Cook your own meals. Read food labels. None about healthy snacks. Portion control and food with low glycemic index 2. Exercise regularly. Try to get at least 6000 steps a day. Use a predominant to track activity level. Consider using apps like [employer], myfitnesspal, lose it, stick as needed for self-monitoring and weight management. Consider group exercises. Consider hiring a personal lines agent. Regular exercise is bernard to sustainable health and prevents as a buffer against weight regain 3. Sleep is most important for healing. Tried to sleep at least 8 hours a night. A good quality sleep needs a sleep ritual with ideal room temperature of around 68. It might help to take a shower and have no electronics in the room and sleep in a very dark room without artificial light. Start her sleep routine and get up early in the morning and go to bed on time 4. Make a social connection. Surround yourself with positive people with positive energy. Connect with friends and family. 5. Get into the habit of meditating and mindfulness while doing everything. 6. Go outside and connect with nature. C. Prescription medications Patient was educated on the use of prescription medications for medical weight loss. This is a growing list and includes phentermine, Topamax,Qsymia, contrave, belviq and saxenda. All prescription medications could have side effects including but not limited to kidney stones, seizure disorder cardiac arrhythmias heart attack pancreatitis etc. etc.. Patient was encouraged to read the prescription insert and have coaching with their pharmacist and make an informed decision about taking medication and know that these medications are being prescribed with good intentions and we do not know how a patient would react to her medication. Sudden medications are FDA approved for weight loss and there is also off label use depending on patient's inability to afford medications in an attempt to lose weight D. Behavioral counseling was done to establish a relationship between food and an mood. Patient was provided information about local counseling and psychiatry and Dr Lundberg at [facility]. We would like to cover regular topics and build on low glycemic eating exercise mindful eating, using yoga and meditation along with deep breathing and connecting with friends and family. E. MASS PAT reviewed, Patient's current medications were reviewed and opinion was given on medication that can cause weight gain and can be substituted F. Patient was assessed for risk with obesity including and not limiting to atherosclerosis heart disease stroke kidney disease, restrictive lung disease, irritable bowel syndrome and overall mortality. Risk of developing prediabetes diabetes and metabolic syndrome was discussed G. Therapeutic plan: We have decided to make therapeutic plan which would include choosing wisely on calories restricting portion getting active, tracking weight, getting good quality sleep and working on time management H. Patient will follow up in (2-3) weeks for weight management Total time spent today was 60 minutes of which greater than 50% was spent on coordinating and counseling 04/29/2024 Morbid obesity (ICD-10 - E66.01) The patient pres ents to the office for a weight managment follow up visit. He is going very well, he is happy with his progress and is motivated to continue losing weight. We discussed to continue lifestyle modifications such as exercising and trying to get 10,000 steps per day. We discussed continuing with a well balanced diet full of protein and veggies and reducing carbs like white bread, pasta and rice. We also discussed reducing his portion sizes and counting his calories as reducing the amount of food he eats will further aid him in losing weight. He is currently getting the compounded 0.5mg injections every week which is working well for him. We are working to get Wegovy 1mg approved by his insurance as he is a great candidate due to completing a 6 month weight loss program with his PCP and having great progress so far. 04/29/2024 Body mass index [BMI] 45.0-49.9, adult (ICD-10 - Z68.42) The patient pres ents to the office for a weight managment follow up visit. He is going very well, he is happy with his progress and is motivated to continue losing weight. We discussed to continue lifestyle modifications such as exercising and trying to get 10,000 steps per day. We discussed continuing with a well balanced diet full of protein and veggies and reducing carbs like white bread, pasta and rice. We also discussed reducing his portion sizes and counting his calories as reducing the amount of food he eats will further aid him in losing weight. He is currently getting the compounded 0.5mg injections every week which is working well for him. We are working to get Wegovy 1mg approved by his insurance as he is a great candidate due to completing a 6 month weight loss program with his PCP and having great progress so far. 05/30/2024 Morbid obesity (ICD-10 - E66.01) Aquiles is a 23-year-old male with a PMH of anxiety, HTN, WALI, obesity that presents for weight management follow-up. Reviewed [facility] holistic medical approach to weight loss with emphasis on lifestyle modification. Patient is educated that a healthy lifestyle aids in combating obesity as well as reducing the risk of developing obesity-related medical complications including but not limited to diabetes and cardiovascular disease. Detailed education provided about taking steps to initiate sustainable lifestyle changes including incorporating regular physical activity, making healthy diet choices, and prioritizing mental health. Information provided about literature including The Food Rules by Lele Sam and Eat Fat Get Lean by Dr Waylon Bowman. Handouts including lifestyle checklist, protein content of food, low calorie snacks, and cholesterol information sheet provided. 05/30/2024: Weight: 430, BMI: 55.2. Reviewed SECA/goals [...] subcutaneous weekly. All questions answered to the patients satisfaction. Patient demonstrates understanding of diagnosis and treatments discussed. Follow-up in 4 weeks, sooner should any questions/concerns arise. Case discussed with collaborating physician Ike Reese who has reviewed the assessment/plan. Chart, medications, labs, and vital signs reviewed. Dictation completed with the use of [employer] voice recognition software, prone to medical misidentifications and grammatical errors. All errors are unintentional. Although the practitioner does try to identify and correct errors, some may be present. Please do not hesitate to contact the practitioner for clarification. 05/30/2024 BMI 50.0-59.9, adult (ICD-10 - Z68.43) Aquiles is a 23-year-old male with a PMH of anxiety, HTN, WALI, obesity that presents for weight management follow-up. Reviewed [facility] holistic medical approach to weight loss with emphasis on lifestyle modification. Patient is educated that a healthy lifestyle aids in combating obesity as well as reducing the risk of developing obesity-related medical complications including but not limited to diabetes and cardiovascular disease. Detailed education provided about taking steps to initiate sustainable lifestyle changes including incorporating regular physical activity, making healthy diet choices, and prioritizing mental health. Information provided about literature including The Food Rules by Lele Sam and Eat Fat Get Lean by Dr Waylon Bowman. Handouts including lifestyle checklist, protein content of food, low calorie snacks, and cholesterol information sheet provided. 05/30/2024: Weight: 430, BMI: 55.2. Reviewed SECA/goals [...] subcutaneous weekly. All questions answered to the patients satisfaction. Patient demonstrates understanding of diagnosis and treatments discussed. Follow-up in 4 weeks, sooner should any questions/concerns arise. Case discussed with collaborating physician Ike Reese who has reviewed the assessment/plan. Chart, medications, labs, and vital signs reviewed. Dictation completed with the use of [employer] voice recognition software, prone to medical misidentifications and grammatical errors. All errors are unintentional. Although the practitioner does try to identify and correct errors, some may be present. Please do not hesitate to contact the practitioner for clarification. 06/25/2024 Morbid obesity (ICD-10 - E66.01) Aquiles is a 23-year-old male with a PMH of anxiety, HTN, WALI, obesity that presents accompanied by mom for weight management follow-up. Reviewed [facility] holistic medical approach to weight loss with emphasis on lifestyle modification. 06/25/2024: Weight: 422, BMI: 54.28. Patient with [...] questions/concerns arise. Case discussed with collaborating physician Ike Reese who has reviewed the assessment/plan. Chart, medications, labs, and vital signs reviewed. Dictation completed with the use of [employer] voice recognition software, prone to medical misidentifications and grammatical errors. All errors are unintentional. Although the practitioner does try to identify and correct errors, some may be present. Please do not hesitate to contact the practitioner for clarification. 07/29/2024 Morbid obesity (ICD-10 - E66.01) Aquiles is a 23-year-old male with a PMH of anxiety, HTN, WALI, obesity that presents accompanied by mom for weight management follow-up. Reviewed [facility] holistic and medical approach to weight loss with emphasis on lifestyle modification. 07/29/2024: Weight: 10/28/2024, BMI: 54.6. Patient with 3 pounds of [...] reviewed. Dictation completed with the use of [employer] voice recognition software, prone to medical misidentifications and grammatical errors. All errors are unintentional. Although the practitioner does try to identify and correct errors, some may be present. Please do not hesitate to contact the practitioner for clarification. Total time spent was 25 minutes with >50% on coordination of care and patient education. 08/27/2024 Morbid obesity (ICD-10 - E66.01) Aquiles is a 23-year-old male with a PMH of anxiety, HTN, WALI, obesity that presents for weight management follow-up. Reviewed [facility] holistic and medical approach to weight loss with emphasis on lifestyle modification. 08/27/24: Weight: 423, BMI: 54.3. SECA reviewed, reveals 2 pounds of fat loss with maintenance of muscle mass. The patient is encouraged to continue to make efforts to increase his physical activity, goal of walking daily with strength training at least 3 times/week. Discussed the importance of adequate nutrition in terms of calorie/protein intake. Patient is encouraged to strive for [id number]/day and minimum 100 g of protein/day. Recommending [...] reviewed. Dictation completed with the use of [employer] voice recognition software, prone to medical misidentifications and grammatical errors. All errors are unintentional. Although the practitioner does try to identify and correct errors, some may be present. Please do not hesitate to contact the practitioner for clarification. Total time spent was 30 minutes with >50% on coordination of care and patient education. 09/30/2024 Morbid obesity (ICD-10 - E66.01) Aquiles [...] intake. Patient is encouraged to strive for [id number]-pxwvknn/day and minimum 100 g of protein/day. Recommending [...] reviewed. Dictation completed with the use of [employer]entiOne voice recognition software, prone to medical misidentifications and grammatical errors. All errors are unintentional. Although the practitioner does try to identify and correct errors, some may be present. Please do not hesitate to contact the practitioner for clarification. Total time spent was 30 minutes with >50% on coordination of care and patient education. 10/28/2024 Morbid obesity (ICD-10 - E66.01) Aquiles is a 24-year-old male with a PMH of anxiety, HTN, WALI, obesity that presents for weight management follow-up. Reviewed [facility] holistic and medical approach to weight loss with emphasis on lifestyle modification. 10/28/24: Weight 427, BMI: 54.8. SECA reviewed, reveals fat loss with maintenance of muscle mass. Weight overall up, likely due to water weight. The patient is encouraged to continue practicing portion control/prioritizing protein intake. Discussed the importance of increasing physical activity to achieve desired weight loss. Encouraging daily walking with goal of strength training 30 minutes 3x weekly. Plan to increase dose of Zepbound to 5mg SC weekly and f/u in 1 month. 09/30/2024: Weight: 425, BMI: 54.5. SECA reviewed, [...] intake. Patient is encouraged to strive for [phone]-rhqtjjn/day and minimum 100 g of protein/day. Recommending [...] questions/concerns arise. Case discussed with collaborating physician Ike Reese who has reviewed the assessment/plan. Chart, medications, labs, and vital signs reviewed. Dictation completed with the use of [employer] voice recognition software, prone to medical misidentifications and grammatical errors. All errors are unintentional. Although the practitioner does try to identify and correct errors, some may be present. Please do not hesitate to contact the practitioner for clarification. Total time spent was 30 minutes with >50% on coordination of care and patient education. 10/28/2024 BMI 50.0-59.9, adult (ICD-10 - Z68.43) Aquiles is a 24-year-old male with a PMH of anxiety, HTN, WALI, obesity that presents for weight management follow-up. Reviewed [facility] holistic and medical approach to weight loss with emphasis on lifestyle modification. 10/28/24: Weight 427, BMI: 54.8. SECA reviewed, reveals fat loss with maintenance of muscle mass. Weight overall up, likely due to water weight. The patient is encouraged to continue practicing portion control/prioritizing protein intake. Discussed the importance of increasing physical activity to achieve desired weight loss. Encouraging daily walking with goal of strength training 30 minutes 3x weekly. Plan to increase dose of Zepbound to 5mg SC weekly and f/u in 1 month. 09/30/2024: Weight: 425, BMI: 54.5. SECA reviewed, [...] intake. Patient is encouraged to strive for [id number]-uxpfxuy/day and minimum 100 g of protein/day. Recommending [...] questions/concerns arise. Case discussed with collaborating physician Ike Reese who has reviewed the assessment/plan. Chart, medications, labs, and vital signs reviewed. Dictation completed with the use of [employer] voice recognition software, prone to medical misidentifications [...] intake. Patient is encouraged to strive for [phone]-evpwkum/day and minimum 100 g of protein/day. Recommending [...] reviewed. Dictation completed with the use of [employer] voice recognition software, prone to medical misidentifications and grammatical errors. All errors are unintentional. Although the practitioner does try to identify and correct errors, some may be present. Please do not hesitate to contact the practitioner for clarification. Total time spent was 30 minutes with >50% on coordination of care and patient education. 08/27/2024 BMI 50.0-59.9, adult (ICD-10 - Z68.43) Aquiles is a 23-year-old male with a PMH of anxiety, HTN, WALI, obesity that presents for weight management follow-up. Reviewed [facility] holistic and medical approach to weight loss with emphasis on lifestyle modification. 08/27/24: Weight: 423, BMI: 54.3. SECA reviewed, reveals 2 pounds of fat loss with maintenance of muscle mass. The patient is encouraged to continue to make efforts to increase his physical activity, goal of walking daily with strength training at least 3 times/week. Discussed the importance of adequate nutrition in terms of calorie/protein intake. Patient is encouraged to strive for [phone]-zkrkcuf/day and minimum 100 g of protein/day. Recommending [...] reviewed. Dictation completed with the use of [employer] voice recognition software, prone to medical misidentifications and grammatical errors. All errors are unintentional. Although the practitioner does try to identify and correct errors, some may be present. Please do not hesitate to contact the practitioner for clarification. Total time spent was 30 minutes with >50% on coordination of care and patient education. 07/29/2024 BMI 50.0-59.9, adult (ICD-10 - Z68.43) Aquiles is a 23-year-old male with a PMH of anxiety, HTN, WALI, obesity that presents accompanied by mom for weight management follow-up. Reviewed [facility] holistic and medical approach to weight loss with emphasis on lifestyle modification. 07/29/2024: Weight: 10/28/2024, BMI: 54.6. Patient with 3 pounds of [...] reviewed. Dictation completed with the use of [employer] voice recognition software, prone to medical misidentifications and grammatical errors. All errors are unintentional. Although the practitioner does try to identify and correct errors, some may be present. Please do not hesitate to contact the practitioner for clarification. Total time spent was 25 minutes with >50% on coordination of care and patient education. 06/25/2024 BMI 50.0-59.9, adult (ICD-10 - Z68.43) Aquiles is a 23-year-old male with a PMH of anxiety, HTN, WALI, obesity that presents accompanied by mom for weight management follow-up. Reviewed [facility] holistic medical approach to weight loss with emphasis on lifestyle modification. 06/25/2024: Weight: 422, BMI: 54.28. Patient with [...] questions/concerns arise. Case discussed with collaborating physician Ike Reese who has reviewed the assessment/plan. Chart, medications, labs, and vital signs reviewed. Dictation completed with the use of [employer] voice recognition software, prone to medical misidentifications and grammatical errors. All errors are unintentional. Although the practitioner does try to identify and correct errors, some may be present. Please do not hesitate to contact the practitioner for clarification. 05/30/2024 Primary hypertension (ICD-10 - I10) Aquiles is a 23-year-old male with a PMH of anxiety, HTN, WALI, obesity that presents for weight management follow-up. Reviewed [facility] holistic medical approach to weight loss with emphasis on lifestyle modification. Patient is educated that a healthy lifestyle aids in combating obesity as well as reducing the risk of developing obesity-related medical complications including but not limited to diabetes and cardiovascular disease. Detailed education provided about taking steps to initiate sustainable lifestyle changes including incorporating regular physical activity, making healthy diet choices, and prioritizing mental health. Information provided about literature including The Food Rules by Lele Sam and Eat Fat Get Lean by Dr Waylon Bowman. Handouts including lifestyle checklist, protein content of food, low calorie snacks, and cholesterol information sheet provided. 05/30/2024: Weight: 430, BMI: 55.2. Reviewed SECA/goals [...] subcutaneous weekly. All questions answered to the patients satisfaction. Patient demonstrates understanding of diagnosis and treatments discussed. Follow-up in 4 weeks, sooner should any questions/concerns arise. Case discussed with collaborating physician kIe Reese who has reviewed the assessment/plan. Chart, medications, labs, and vital signs reviewed. Dictation completed with the use of [employer] voice recognition software, prone to medical misidentifications and grammatical errors. All errors are unintentional. Although the practitioner does try to identify and correct errors, some may be present. Please do not hesitate to contact the practitioner for clarification. 03/25/2024 Primary hypertension (ICD-10 - I10) [facility] CONSULT: Patient was reassured and welcomed to the practice. We discussed that we stress a hollistic medical approach with emphasis on lifestyle modification. Patient was informed that a healthy lifestyle with exercise and good eating habits can help reduce his risk of medical complications. He is explained that obesity increases his risk of diabetes, cardiovascular disease, or organ damage. We spent a lot of time discussing the relationship between food, exercise, sleep, mental health and obesity. Patient was counseled on the importance EATING local, organic food when possible. Patient was educated on clean 15 and dirty dozen. I provided information about reading books called The Food Rules by Lele Sam and Eat Fat Get Lean by Dr Waylon Bowman. Self education is important in the journey for weight management. Patient was offered diagnostic testing. We want to measure visceral adiposity, advanced body composition, adverse lipids, fatty acid balance, risk for heart disease and atherosclerosis, markers of inflammation and genetic susceptibility. Patient was counseled on weight management and was advised to lose weight using A. Meal Replacement Products Patient was educated on the replacement products called optifast. This is a good way of taking fixed amount of calories. It has been shown in studies to be ineffective weight management tool. This however has to be coupled with lifestyle intervention as well as laboratory data and EKG monitoring. It is impossible to know how a person will tolerate complete meal replacement. The side effects of meal replacement and weight loss could include syncopal attacks, dizziness, gallstones, potential cholecystectomy, possible heart attack and even . The benefits of meal replacement would be potential weight loss but no guarantees can be made. Meal replacement products are not covered by insurance. Once the patient has bought these products we cannot return them B. Lifestyle management which includes several strategies as below 1. Eat a low carbohydrate good fat good protein diet. Eliminate refined carbohydrates from the diet. Continue blood sugar and sugared beverages. Eat local organic when possible. Cook your own meals. Read food labels. None about healthy snacks. Portion control and food with low glycemic index 2. Exercise regularly. Try to get at least 6000 steps a day. Use a predominant to track activity level. Consider using apps like [employer], [employer], lose it, stick as needed for self-monitoring and weight management. Consider group exercises. Consider hiring a personal lines agent. Regular exercise is bernard to sustainable health and prevents as a buffer against weight regain 3. Sleep is most important for healing. Tried to sleep at least 8 hours a night. A good quality sleep needs a sleep ritual with ideal room temperature of around 68. It might help to take a shower and have no electronics in the room and sleep in a very dark room without artificial light. Start her sleep routine and get up early in the morning and go to bed on time 4. Make a social connection. Surround yourself with positive people with positive energy. Connect with friends and family. 5. Get into the habit of meditating and mindfulness while doing everything. 6. Go outside and connect with nature. C. Prescription medications Patient was educated on the use of prescription medications for medical weight loss. This is a growing list and includes phentermine, Topamax,Qsymia, contrave, belviq and saxenda. All prescription medications could have side effects including but not limited to kidney stones, seizure disorder cardiac arrhythmias heart attack pancreatitis etc. etc.. Patient was encouraged to read the prescription insert and have coaching with their pharmacist and make an informed decision about taking medication and know that these medications are being prescribed with good intentions and we do not know how a patient would react to her medication. Sudden medications are FDA approved for weight loss and there is also off label use depending on patient's inability to afford medications in an attempt to lose weight D. Behavioral counseling was done to establish a relationship between food and an mood. Patient was provided information about local counseling and psychiatry and Dr Lundberg at [facility]. We would like to cover regular topics and build on low glycemic eating exercise mindful eating, using yoga and meditation along with deep breathing and connecting with friends and family. E. MASS PAT reviewed, Patient's current medications were reviewed and opinion was given on medication that can cause weight gain and can be substituted F. Patient was assessed for risk with obesity including and not limiting to atherosclerosis heart disease stroke kidney disease, restrictive lung disease, irritable bowel syndrome and overall mortality. Risk of developing prediabetes diabetes and metabolic syndrome was discussed G. Therapeutic plan: We have decided to make therapeutic plan which would include choosing wisely on calories restricting portion getting active, tracking weight, getting good quality sleep and working on time management H. Patient will follow up in (2-3) weeks for weight management Total time spent today was 60 minutes of which greater than 50% was spent on coordinating and counseling 04/29/2024 Primary hypertension (ICD-10 - I10) The patient pres ents to the office for a weight managment follow up visit. He is going very well, he is happy with his progress and is motivated to continue losing weight. We discussed to continue lifestyle modifications such as exercising and trying to get 10,000 steps per day. We discussed continuing with a well balanced diet full of protein and veggies and reducing carbs like white bread, pasta and rice. We also discussed reducing his portion sizes and counting his calories as reducing the amount of food he eats will further aid him in losing weight. He is currently getting the compounded 0.5mg injections every week which is working well for him. We are working to get Wegovy 1mg approved by his insurance as he is a great candidate due to completing a 6 month weight loss program with his PCP and having great progress so far. 05/30/2024 Obstructive sleep apnea (ICD-10 - G47.33) Aquiles is a 23-year-old male with a PMH of anxiety, HTN, WALI, obesity that presents for weight management follow-up. Reviewed [facility] holistic medical approach to weight loss with emphasis on lifestyle modification. Patient is educated that a healthy lifestyle aids in combating obesity as well as reducing the risk of developing obesity-related medical complications including but not limited to diabetes and cardiovascular disease. Detailed education provided about taking steps to initiate sustainable lifestyle changes including incorporating regular physical activity, making healthy diet choices, and prioritizing mental health. Information provided about literature including The Food Rules by Lele Sam and Eat Fat Get Lean by Dr Waylon Bowman. Handouts including lifestyle checklist, protein content of food, low calorie snacks, and cholesterol information sheet provided. 05/30/2024: Weight: 430, BMI: 55.2. Reviewed SECA/goals [...] subcutaneous weekly. All questions answered to the patients satisfaction. Patient demonstrates understanding of diagnosis and treatments discussed. Follow-up in 4 weeks, sooner should any questions/concerns arise. Case discussed with collaborating physician Ike Reese who has reviewed the assessment/plan. Chart, medications, labs, and vital signs reviewed. Dictation completed with the use of [employer] voice recognition software, prone to medical misidentifications and grammatical errors. All errors are unintentional. Although the practitioner does try to identify and correct errors, some may be present. Please do not hesitate to contact the practitioner for clarification. 04/29/2024 Obstructive sleep apnea (ICD-10 - G47.33) The patient pres ents to the office for a weight managment follow up visit. He is going very well, he is happy with his progress and is motivated to continue losing weight. We discussed to continue lifestyle modifications such as exercising and trying to get 10,000 steps per day. We discussed continuing with a well balanced diet full of protein and veggies and reducing carbs like white bread, pasta and rice. We also discussed reducing his portion sizes and counting his calories as reducing the amount of food he eats will further aid him in losing weight. He is currently getting the compounded 0.5mg injections every week which is working well for him. We are working to get Wegovy 1mg approved by his insurance as he is a great candidate due to completing a 6 month weight loss program with his PCP and having great progress so far. 03/25/2024 Obstructive sleep apnea (ICD-10 - G47.33) [facility] CONSULT: Patient was reassured and welcomed to the practice. We discussed that we stress a hollistic medical approach with emphasis on lifestyle modification. Patient was informed that a healthy lifestyle with exercise and good eating habits can help reduce his risk of medical complications. He is explained that obesity increases his risk of diabetes, cardiovascular disease, or organ damage. We spent a lot of time discussing the relationship between food, exercise, sleep, mental health and obesity. Patient was counseled on the importance EATING local, organic food when possible. Patient was educated on clean 15 and dirty dozen. I provided information about reading books called The Food Rules by Lele Sam and Eat Fat Get Lean by Dr Waylon Bowman. Self education is important in the journey for weight management. Patient was offered diagnostic testing. We want to measure visceral adiposity, advanced body composition, adverse lipids, fatty acid balance, risk for heart disease and atherosclerosis, markers of inflammation and genetic susceptibility. Patient was counseled on weight management and was advised to lose weight using A. Meal Replacement Products Patient was educated on the replacement products called optifast. This is a good way of taking fixed amount of calories. It has been shown in studies to be ineffective weight management tool. This however has to be coupled with lifestyle intervention as well as laboratory data and EKG monitoring. It is impossible to know how a person will tolerate complete meal replacement. The side effects of meal replacement and weight loss could include syncopal attacks, dizziness, gallstones, potential cholecystectomy, possible heart attack and even . The benefits of meal replacement would be potential weight loss but no guarantees can be made. Meal replacement products are not covered by insurance. Once the patient has bought these products we cannot return them B. Lifestyle management which includes several strategies as below 1. Eat a low carbohydrate good fat good protein diet. Eliminate refined carbohydrates from the diet. Continue blood sugar and sugared beverages. Eat local organic when possible. Cook your own meals. Read food labels. None about healthy snacks. Portion control and food with low glycemic index 2. Exercise regularly. Try to get at least 6000 steps a day. Use a predominant to track activity level. Consider using apps like [employer], [employer]fitnesspal, lose it, stick as needed for self-monitoring and weight management. Consider group exercises. Consider hiring a personal lines agent. Regular exercise is bernard to sustainable health and prevents as a buffer against weight regain 3. Sleep is most important for healing. Tried to sleep at least 8 hours a night. A good quality sleep needs a sleep ritual with ideal room temperature of around 68. It might help to take a shower and have no electronics in the room and sleep in a very dark room without artificial light. Start her sleep routine and get up early in the morning and go to bed on time 4. Make a social connection. Surround yourself with positive people with positive energy. Connect with friends and family. 5. Get into the habit of meditating and mindfulness while doing everything. 6. Go outside and connect with nature. C. Prescription medications Patient was educated on the use of prescription medications for medical weight loss. This is a growing list and includes phentermine, Topamax,Qsymia, contrave, belviq and saxenda. All prescription medications could have side effects including but not limited to kidney stones, seizure disorder cardiac arrhythmias heart attack pancreatitis etc. etc.. Patient was encouraged to read the prescription insert and have coaching with their pharmacist and make an informed decision about taking medication and know that these medications are being prescribed with good intentions and we do not know how a patient would react to her medication. Sudden medications are FDA approved for weight loss and there is also off label use depending on patient's inability to afford medications in an attempt to lose weight D. Behavioral counseling was done to establish a relationship between food and an mood. Patient was provided information about local counseling and psychiatry and Dr Lundberg at [facility]. We would like to cover regular topics and build on low glycemic eating exercise mindful eating, using yoga and meditation along with deep breathing and connecting with friends and family. E. MASS PAT reviewed, Patient's current medications were reviewed and opinion was given on medication that can cause weight gain and can be substituted F. Patient was assessed for risk with obesity including and not limiting to atherosclerosis heart disease stroke kidney disease, restrictive lung disease, irritable bowel syndrome and overall mortality. Risk of developing prediabetes diabetes and metabolic syndrome was discussed G. Therapeutic plan: We have decided to make therapeutic plan which would include choosing wisely on calories restricting portion getting active, tracking weight, getting good quality sleep and working on time management H. Patient will follow up in (2-3) weeks for weight management Total time spent today was 60 minutes of which greater than 50% was spent on coordinating and counseling 06/25/2024 Primary hypertension (ICD-10 - I10) Aquiles is a 23-year-old male with a PMH of anxiety, HTN, WALI, obesity that presents accompanied by mom for weight management follow-up. Reviewed [facility] holistic medical approach to weight loss with emphasis on lifestyle modification. 06/25/2024: Weight: 422, BMI: 54.28. Patient with [...] questions/concerns arise. Case discussed with collaborating physician Ike Reese who has reviewed the assessment/plan. Chart, medications, labs, and vital signs reviewed. Dictation completed with the use of S[employer]One voice recognition software, prone to medical misidentifications and grammatical errors. All errors are unintentional. Although the practitioner does try to identify and correct errors, some may be present. Please do not hesitate to contact the practitioner for clarification. 07/29/2024 Primary hypertension (ICD-10 - I10) Aquiles is a 23-year-old male with a PMH of anxiety, HTN, WALI, obesity that presents accompanied by mom for weight management follow-up. Reviewed [facility] holistic and medical approach to weight loss with emphasis on lifestyle modification. 07/29/2024: Weight: 10/28/2024, BMI: 54.6. Patient with 3 pounds of [...] reviewed. Dictation completed with the use of [employer]One voice recognition software, prone to medical misidentifications and grammatical errors. All errors are unintentional. Although the practitioner does try to identify and correct errors, some may be present. Please do not hesitate to contact the practitioner for clarification. Total time spent was 25 minutes with >50% on coordination of care and patient education. 08/27/2024 Primary hypertension (ICD-10 - I10) Aquiles is a 23-year-old male with a PMH of anxiety, HTN, WALI, obesity that presents for weight management follow-up. Reviewed [facility] holistic and medical approach to weight loss with emphasis on lifestyle modification. 08/27/24: Weight: 423, BMI: 54.3. SECA reviewed, reveals 2 pounds of fat loss with maintenance of muscle mass. The patient is encouraged to continue to make efforts to increase his physical activity, goal of walking daily with strength training at least 3 times/week. Discussed the importance of adequate nutrition in terms of calorie/protein intake. Patient is encouraged to strive for 031-1016-owvvwfn/day and minimum 100 g of protein/day. Recommending [...] reviewed. Dictation completed with the use of [employer] voice recognition software, prone to medical misidentifications [...] intake. Patient is encouraged to strive for 222-8130-htxcjub/day and minimum 100 g of protein/day. Recommending [...] reviewed. Dictation completed with the use of [employer] voice recognition software, prone to medical misidentifications and grammatical errors. All errors are unintentional. Although the practitioner does try to identify and correct errors, some may be present. Please do not hesitate to contact the practitioner for clarification. Total time spent was 30 minutes with >50% on coordination of care and patient education. 10/28/2024 Primary hypertension (ICD-10 - I10) qAuiles is a 24-year-old male with a PMH of anxiety, HTN, WALI, obesity that presents for weight management follow-up. Reviewed [facility] holistic and medical approach to weight loss with emphasis on lifestyle modification. 10/28/24: Weight 427, BMI: 54.8. SECA reviewed, reveals fat loss with maintenance of muscle mass. Weight overall up, likely due to water weight. The patient is encouraged to continue practicing portion control/prioritizing protein intake. Discussed the importance of increasing physical activity to achieve desired weight loss. Encouraging daily walking with goal of strength training 30 minutes 3x weekly. Plan to increase dose of Zepbound to 5mg SC weekly and f/u in 1 month. 09/30/2024: Weight: 425, BMI: 54.5. SECA reviewed, [...] intake. Patient is encouraged to strive for 348-2532-gmqntea/day and minimum 100 g of protein/day. Recommending [...] questions/concerns arise. Case discussed with collaborating physician Ike Reese who has reviewed the assessment/plan. Chart, medications, labs, and vital signs reviewed. Dictation completed with the use of [employer] voice recognition software, prone to medical misidentifications and grammatical errors. All errors are unintentional. Although the practitioner does try to identify and correct errors, some may be present. Please do not hesitate to contact the practitioner for clarification. Total time spent was 30 minutes with >50% on coordination of care and patient education. 10/28/2024 Obstructive sleep apnea (ICD-10 - G47.33) Aquiles is a 24-year-old male with a PMH of anxiety, HTN, WALI, obesity that presents for weight management follow-up. Reviewed [facility] holistic and medical approach to weight loss with emphasis on lifestyle modification. 10/28/24: Weight 427, BMI: 54.8. SECA reviewed, reveals fat loss with maintenance of muscle mass. Weight overall up, likely due to water weight. The patient is encouraged to continue practicing portion control/prioritizing protein intake. Discussed the importance of increasing physical activity to achieve desired weight loss. Encouraging daily walking with goal of strength training 30 minutes 3x weekly. Plan to increase dose of Zepbound to 5mg SC weekly and f/u in 1 month. 09/30/2024: Weight: 425, BMI: 54.5. SECA reviewed, [...] intake. Patient is encouraged to strive for [phone]-tyfjenk/day and minimum 100 g of protein/day. Recommending [...] questions/concerns arise. Case discussed with collaborating physician Ike Reese who has reviewed the assessment/plan. Chart, medications, labs, and vital signs reviewed. Dictation completed with the use of [employer] voice recognition software, prone to medical misidentifications [...] intake. Patient is encouraged to strive for 439-4740-gzboaal/day and minimum 100 g of protein/day. Recommending [...] reviewed. Dictation completed with the use of [employer] voice recognition software, prone to medical misidentifications and grammatical errors. All errors are unintentional. Although the practitioner does try to identify and correct errors, some may be present. Please do not hesitate to contact the practitioner for clarification. Total time spent was 30 minutes with >50% on coordination of care and patient education. 06/25/2024 Obstructive sleep apnea (ICD-10 - G47.33) Aquiles is a 23-year-old male with a PMH of anxiety, HTN, WALI, obesity that presents accompanied by mom for weight management follow-up. Reviewed [facility] holistic medical approach to weight loss with emphasis on lifestyle modification. 06/25/2024: Weight: 422, BMI: 54.28. Patient with [...] questions/concerns arise. Case discussed with collaborating physician Ike Reese who has reviewed the assessment/plan. Chart, medications, labs, and vital signs reviewed. Dictation completed with the use of [employer] voice recognition software, prone to medical misidentifications and grammatical errors. All errors are unintentional. Although the practitioner does try to identify and correct errors, some may be present. Please do not hesitate to contact the practitioner for clarification. 07/29/2024 Obstructive sleep apnea (ICD-10 - G47.33) Aquiles is a 23-year-old male with a PMH of anxiety, HTN, WALI, obesity that presents accompanied by mom for weight management follow-up. Reviewed [facility] holistic and medical approach to weight loss with emphasis on lifestyle modification. 07/29/2024: Weight: 10/28/2024, BMI: 54.6. Patient with 3 pounds of [...] reviewed. Dictation completed with the use of [employer] voice recognition software, prone to medical misidentifications and grammatical errors. All errors are unintentional. Although the practitioner does try to identify and correct errors, some may be present. Please do not hesitate to contact the practitioner for clarification. Total time spent was 25 minutes with >50% on coordination of care and patient education. 08/27/2024 Obstructive sleep apnea (ICD-10 - G47.33) Aquiles is a 23-year-old male with a PMH of anxiety, HTN, WALI, obesity that presents for weight management follow-up. Reviewed [facility] holistic and medical approach to weight loss with emphasis on lifestyle modification. 08/27/24: Weight: 423, BMI: 54.3. SECA reviewed, reveals 2 pounds of fat loss with maintenance of muscle mass. The patient is encouraged to continue to make efforts to increase his physical activity, goal of walking daily with strength training at least 3 times/week. Discussed the importance of adequate nutrition in terms of calorie/protein intake. Patient is encouraged to strive for [phone]-aunwpcq/day and minimum 100 g of protein/day. Recommending [...] reviewed. Dictation completed with the use of [employer] voice recognition software, prone to medical misidentifications and grammatical errors. All errors are unintentional. Although the practitioner does try to identify and correct errors, some may be present. Please do not hesitate to contact the practitioner for clarification. Total time spent was 30 minutes with >50% on coordination of care and patient education. PLAN OF TREATMENT Next Appt Details Provider Name:CLARA ALYSHA Ch, 12/01/2024 08:45:00 AM, [address] [place] [address] [address], [place], [address], Insurance Providers Payer Name Payer Address Payer Phone Subscriber Number Group Number Insured Name Patient Relationship to Insured Coverage Start Date Coverage End Date [employer] [address] [address] [place] [address] [id number] Aquiles Page Self - patient is the insured 4 MEDICATIONS ADMINISTERED Medication Instructions Date of Administration Dosage Notes MICC B12 INJECTION 09/30/2024 1 mL Semaglutide 04/22/2024 0.5 mg LRQ SQ Semaglutide 04/29/2024 0.5 g MEDICAL (GENERAL) HISTORY Medical History History ICD Code Morbid obesity E66.01 Primary hypertension I10 Obstructive sleep apnea G47.33
--- OUTSIDE RECORDS SUMMARY | 2024-11-06 09:45 | XMS_ITS ---
Author Organization [facility] Address [address] [place] [address] Care Team Providers Care School Fundraising Director Name Role Phone SHEA REESE Unavailable [phone] COMFORT CLARA Unavailable [phone] ALLERGIES Allergen (clinical drug ingredient) Drug/Non Drug Allergy documented on EMR Reaction Allergy Type Onset Date Status sulfamethoxazole / trimethoprim Bactrim Unknown Drug Allergy Active REASON FOR VISIT Patient is here for weight management follow up. SECA done. Previous weight was 425. Today the patient weight is 427. He has no complaints MEDICATIONS Medication SIG (Take, Route, Frequency, Duration) Notes Start Date End Date Status amLODIPine Besylate 2.5 MG 1 tablet Orally twice a day Active ARIPiprazole 2 MG 1 tablet Orally Once a day Active Ondansetron HCl 4 MG 1 tablet as needed for nausea Orally Once a day for 30 days 03/25/2024 Active Chlorthalidone 25 MG 1 tablet in the morning with food Orally Active Wegovy 2.4 MG/0.75ML INJECT 2.4MG SUBCUTANEOUS ONCE WEEKLY 30 DAYS for 30 Active Lisinopril 20 MG 1 tablet Orally Once a day Active Escitalopram Oxalate 20 MG 1.5 tablets Orally Once a day 30mg PO QD Active Zepbound 5 MG/0.5ML Inject 5mg Subcutaneous Weekly for 30 days Active VITAL SIGNS Heart Rate 81 /min 10/28/2024 Blood pressure systolic 120 mm Hg 10/28/19 25 Blood pressure diastolic 74 mm Hg 025 Weight 427 lbs 10/28/2024 BMI 54.82 kg/m2 10/28/2024 Height 74 in 10/28/2024 Oximetry 96 % 10/28/2024 Encounters Encounter Location Date Provider Diagnosis [address] [address] 10/28/2024 CLARA MOYER Morbid obesity E66.0 1 ; BMI 50.0-59.9, adult Z68.43 ; Primary hypertension I10 and Obstructive sleep apnea G47.33 ASSESSMENTS Encounter Date Diagnosis Assessment Notes Treatment Notes Treatment Clinical Notes Section Notes 10/28/2024 Morbid obesity (ICD-10 - E66.01) Aquiles [...] intake. Patient is encouraged to strive for [phone]-obbmxsp/day and minimum 100 g of protein/day. Recommending [...] reviewed. Dictation completed with the use of [employer] voice recognition software, prone to medical misidentifications [...] intake. Patient is encouraged to strive for 576-2788-bixwxmw/day and minimum 100 g of protein/day. Recommending [...] reviewed. Dictation completed with the use of [employer] voice recognition software, prone to medical misidentifications and grammatical errors. All errors are unintentional. Although the practitioner does try to identify and correct errors, some may be present. Please do not hesitate to contact the practitioner for clarification. Total time spent was 30 minutes with >50% on coordination of care and patient education. 10/28/2024 Primary hypertension (ICD-10 - I10) Aquiles is a 24-year-old male with a [...] intake. Patient is encouraged to strive for 264-4571-ugnkkam/day and minimum 100 g of protein/day. Recommending [...] reviewed. Dictation completed with the use of [employer] voice recognition software, prone to medical misidentifications [...] intake. Patient is encouraged to strive for [phone]-oddefol/day and minimum 100 g of protein/day. Recommending [...] reviewed. Dictation completed with the use of [employer] voice recognition software, prone to medical misidentifications [...] Sig Start Date Stop Date Notes Zepbound 5 MG/0.5ML Inject 5mg Subcutane ous Weekly for 30 days Next Appt Details Provider Name:CLARA Ch, 12/01/2024 08:45:00 AM, [address] [facility], [place] [address], [place], [address], Progress Notes * Aquiles PAGEDOB:2000 ([age] yo M)Acc No.[id number]:10/28/2024 Patient:??Aquiles PAGE Provider:??CLARA MOYER PA-C :2000?Age:24 Y?Sex:Ma le Date:10/28/2024 Address:[address] [place], [place] [id number] Subjective: * Chief Complaints: * ?1. Patient is here for weight management follow up. SECA done. Previous weight was 425. Today the patient weight is 427. He has no complaints. * HPI: ?Constitutional:? Aquiles is a 24-year-old male with a PMH of anxiety, HTN, obesity that presents for weight management follow-up. Patient taking Zepbound 2.5mg SC weekly with compliance. Reports moderate appetite suppression. Denies the presence of side effects including abdominal pain, nausea, vomiting, constipation, or fatigue. Did report acid reflux in the evening. Trying to limit eating before bed with improvement in symptoms. Averaging 2 meals/day. Usually breakfast and dinner. Breakfast varies - primarily chicken broth. Occasionally will snack on PB sandwiches/banana. Dinner is primarily a protein (chicken of fish), a veggie, and a carb/starch. Water intake is improved, drinking 90 ounces/day. Physical activity could be better. Primarily just walking. * ROS:?All Other Systems:?Review of Systems (ROS)??All others negative except those mentioned in HPI.? * Medical History:??Morbid obe sity, Primary hypertension, [...] 2.4MG SUBCUTANEOUS ONCE WEEKLY 30 DAYS , Taking Zepbound 2.5 MG/0.5ML Solution Auto-injector 2.5mg Subcutaneous Weekly , Medication List reviewed and reconciled with the patient * Allergies:??Bactrim. Objective: * Vitals:??HR:81/min, BP:120/7 4mm Hg, Wt:427lbs, BMI:54.82Index, Ht: 74 in, Oxygen sat %:96%. * [...] sleep apnea - G47.33?? Aquiles is a 24-year-old male with a [...] intake. Patient is encouraged to strive for [phone]-qrfawtx/day and minimum 100 g of protein/day. Recommending [...] reviewed. Dictation completed with the use of Livefyre voice recognition software, prone to medical misidentifications and grammatical errors. All errors are unintentional. Although the practitioner does try to identify and correct errors, some may be present. Please do not hesitate to contact the practitioner for clarification. Total time spent was 30 minutes with >50% on coordination of care and patient education. 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 54656 Office Visit, Est Pt., Level 4. * Procedure Codes:?? 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 * Sign off status: Completed true * Provider:??CLARA MOYER PA-C Date:?? 10/28/2024 History and Physical Notes * HPI (History of Present Illness) Category Sub-Category Detail Notes Category Not es Constitutional Aquiles is a 24 -year-old male with a PMH of anxiety, HTN, obesity that presents for weight management follow-up. Patient taking Zepbound 2.5mg SC weekly with compliance. Reports moderate appetite suppression. Denies the presence of side effects including abdominal pain, nausea, vomiting, constipation, or fatigue. Did report acid reflux in the evening. Trying to limit eating before bed with improvement in symptoms. Averaging 2 meals/day. Usually breakfast and dinner. Breakfast varies - primarily chicken broth. Occasionally will snack on PB sandwiches/banana. Dinner is primarily a protein (chicken of fish), a veggie, and a carb/starch. Water intake is improved, drinking 90 ounces/day. Physical activity could be better. Primarily just walking. Physical Examination Category Sub-Category Detail Notes Section [...]
--- OUTSIDE RECORDS SUMMARY | 2024-11-06 09:45 | XMS_ITS | Encounter Summary ---
Author Organization [facility] Address [address] [place] [address] Phone Care Team Providers Care Coordinator Of Genetic Services Name Role Phone Jose Moore MD Primary Care Provider [phone] Reason for Visit * Reason Comments Med Refill Encounter Details Date Type Department Care Team (Late st Contact Info) Description 03/03/[address] [facility] [address] [place] [address] Calista Bauer NP [address] [place] [address] Acne, unspecified acne type Social History Tobacco [...] Telephone Encounter - Jose Moore MD - 03/03/2020 5:16 PM EDT Prescriptions reviewed and eprescribed to pharmacy * Telephone Encounter - Yuliya Mendoza MA - 03/03/2020 8:46 AM EDT Refill request for Clindamycin Last [facility]CC was 02/12/20 Last refill was 11/14/19 3 refills Please review documented in this encounter Plan of Treatment Not on file documented as of this encounter Visit Diagnoses Diagnosis Acne, unspecified acne type documented in this encounter Care Teams Coordinator Of Genetic Services Relationship Specialty Start Date End Date Jose Moore MD [address] [place] [address] PCP - General 01/30/18 08/04/24 documented as of this encounter
--- OUTSIDE RECORDS SUMMARY | 2024-11-06 09:45 | XMS_ITS | Encounter Summary ---
Author Organization [facility] Address [address] [place] [address] Phone Care Team Providers Care Fashion Journalist Name Role Phone Jose Moore MD Primary Care Provider [phone] Reason for Visit * Reason Comments Med Refill Encounter Details Date Type Department Care Team (Late st Contact Info) Description 12/26/2018 Refill [facility] [id number] [place], [place] [phone] Jose Moore MD [address] [place] [address] Anxiety Social History Tobacco Use Types Packs/Day Years Used Date Smoking Tobacco: Never Assessed Hunger/Food Answer Date Recorded No 12/30/2018 Stable [...] Telephone Encounter - Jose Moore MD - 12/28/2018 8:46 AM EDT Prescriptions reviewed and eprescribed to pharmacy * Telephone Encounter - Yuliya Mendoza MA - 12/27/2018 8:27 AM EDT Thank you! Sent to Dr. Moore * Telephone Encounter - Yuliya Mendoza MA - 12/26/2018 4:31 PM EDT Refill request for Fluoxetine 10mg See 11/19/18 encounter. Needs recheck prior to refill per Dr. Moore. Has appt scheduled for 01/01/19. Dr. Moore is off until Sunday. Please review. documented in this encounter Plan of Treatment Not on file documented as of this encounter Visit Diagnoses Diagnosis Anxiety Anxiety state, unspecified documented in this encounter Care Teams Fashion Journalist Relationship Specialty Start Date End Date Jose Moore MD [address] [facility] [place] [address] PCP - General 01/30/18 08/04/24 documented as of this encounter
--- OUTSIDE RECORDS SUMMARY | 2024-11-06 09:45 | XMS_ITS | Encounter Summary ---
Author Organization [facility] Address [address] [place] [address] Phone Care Team Providers Care Biomaterials Engineer Name Role Phone Jose Moore MD Primary Care Provider [phone] Reason for Visit * Reason Comments Med Refill Encounter Details Date Type Department Care Team (Late st Contact Info) Description 04/21/2019 Refill [facility] [address] [place] [address] Jose Moore MD [address] [place] [address] Anxiety Social History Tobacco Use Types Packs/Day [...] unspecified documented in this encounter Care Teams Biomaterials Engineer Relationship Specialty Start Date End Date Jose Moore MD [address] [place] [address] PCP - General 01/30/18 08/04/24 documented as of this encounter
== END ==
LOC: HO.HMCFM 09:20
PROVIDERS: PCP Family Medicine; Visit Provider Family Medicine
DX: R79.89 Other specified abnormal findings of blood chemistry (principal); E78.6 Lipoprotein deficiency; R74.01 Elevation of levels of liver transaminase levels